=== PATIENT | female | born 1975 | race African-American/Black ===

== ENCOUNTER 2017-12-07 10:02 | Emergency (ER) | payer OTHER ==
[2017-12-07 10:10] VITALS: BP 159/73; BMI 25.1
--- NOTE | 2017-12-07 10:39 | DR.GENAD ---
HPI - PCP Primary Care Physician: NFThomas - HPI Comment HPI Comment: REDNESS,SWELLING NOTED. PAIN GOING INTO HAND ALSO. - Complaint/Symptoms Chief Complaint Doctors Comments: CUT BACK OF LT MIDDLE FINGER AT PIP JOINT SINCE 22:00 PM LAST NIGHT. Chief Complaint:: PT STATES SHE CUT FINGER LAST NIGHT ABOUT 10PM AT WORK, STATES FINGER IS SWELLING AND SHE NEEDS TO HAVE IT CHECKED OUT - Nurses notes reviewed Nurses Notes Review: Yes - Source History Provided: Patient - Mode of Arrival Mode of Arrival: Ambulatory - Timing Onset of Chief Complaint: 12/07/17 Came on: Suddenly - Duration Duration: Constant Duration: Days - Severity Severity: Moderate PMH - PMH Past Medical History: Yes Past Medical History: Arthritis, Diabetes Past Surgical History: Yes Surgical History: Hysterectomy - Family History History of Family Medical Conditions: Yes Family Medical History: Diabetes Mellitus, [place], Hypertension - Social History Does patient currently use any type of tobacco product: No Have you used tobacco products in the last 12 months: No Type of Tobacco Use: Cigarettes Alcohol Use: None Do you use any recreational Drugs:: No Lives With: Alone Lives Where: Home - infectious screening In the last 2 months have you had wt loss of >10#?: NO Have you had fever, night sweats or hemotysis?: No Have you traveled outside the country in the last 6 months?: No Isolation: Standard ROS - Review of Systems Constitutional: No Symptoms Reported Eyes: No Symptoms Reported ENTM: No Symptoms Reported Respiratoy: No Symptoms Reported Cardiovascular: No Symptoms Reported Gastrointestinal/Abdominal: No Symptoms Reported Genitourinary: No Symptoms Reported Neurological: No Symptoms Reported Musculoskeletal: No Symptoms Reported Integumentary: Change in Color, Other (1CM CUT LT PIP JOINT AREA. REDNESS AND SWELLING PRESENT.) Hematologic/Lymphatic: No Symptoms Reported Endocrine: No Symptoms Reported All Other Systems: Reviewed and Negative PE - Vital Signs Vitals: Temperature 98.7 F Pulse Rate 84 Respiratory Rate 20 Blood Pressure [Left Arm] 132/78 Blood Pressure 159/73 O2 Sat by Pulse Oximetry 100 - General Limitations: No Limitations General Appearance: Alert - Head Head Exam: Normal Inspection - Eyes Eye exam: Normal Appearance - ENT ENT Exam: Normal External Ear Exam External Ear Exam: Normal External Inspection TM/Canal Exam: Bilateral Normal Nose Exam: Normal Nose Exam Mouth Exam: Normal Inspection Throat Exam: Normal Inspection - Neck Neck Exam: Trachea Midline - Respiratory Respiratory Exam: Normal Lung Sounds Bilat Respiratory Exam: Bilateral Clear to Auscultation - Cardiovascular Cardiovascular Exam: Regular Rate, Normal Rhythm, Normal Heart Sounds - Abdominal Exam Abdominal Exam: Normal Inspection - Extremities Extremities Exam: Full ROM, Tenderness (PIP LT MIDDLE FINGER WITH 1CM CUT. SWELLING AND REDNESS PRESENR. ), Joint Swelling - Back Back Exam: Normal Inspection - Neurologic Neurological Exam: Alert, Oriented X3 - Psychiatric Psychiatric Exam: Normal Affect, Normal Mood - Skin Skin Exam: Erythema MDM - Differential Diagnosis Differential Diagnosis: LAC LT MIDDLE PIP JOINT. INFECTED FINGER. Course - Treatment Treatment: SEE ORDERS. - Education/Counseling Education/Counseling: Patient, Education Educated On: Diagnosis, Needs for Follow Up - Diagnosis Discharge Problem: Finger laceration, Infected finger - Discharge Plan Condition: Stable Prescriptions: Ibuprofen [MOTRIN TAB 600 MG *] 600 mg PO TID PRN #20 tab PRN Reason: Pain/Inflammation Sulfamethoxazole-Trimethoprim [BACTRIM DS TAB 800/160 MG *] 1 tab PO BID #14 tab - Follow ups/Referrals Follow ups/Referrals: NFD,None [Primary Care Provider] - 3 days - Instructions Instructions: Laceration Care, Adult, [id number] Additional Instructions: RETURN TO ED IF WORSE.
[2017-12-07] MEDS ORDERED: ADACEL TDaP IM ONE ×2 (10:44→11:00)
[2017-12-07] MEDS ORDERED: NEOSPORIN OINT ONE (10:49)
== END 2017-12-07 11:12 | disposition home or self-care (01) ==
LOC: ER 10:15
DX: S61.213A Laceration without foreign body of left middle finger without damage to nail, initial encounter (principal); L08.9 Local infection of the skin and subcutaneous tissue, unspecified; W45.8XXA Other foreign body or object entering through skin, initial encounter; Y92.9 Unspecified place or not applicable
CPT/HCPCS: 90471; 99282

== ENCOUNTER 2025-08-03 13:09 | Observation (INO) ==
[2025-08-03 15:03] LABS: MEAN PLATELET VOLUME 8.9 fL (7.4-11.0); RED CELL DISTRIBUTION WIDTH 13.9 % (11.6-16.5)
[2025-08-03 15:13] LABS: COR CA(FOR HYPOALB) 11.2 mg/dL (8.5-10.1); COR NA(FOR HYPERGLY) 142.0 mmol/L (136-145); CREATININE 1.4 mg/dL (0.55-1.02); eGFR NON BLACK RACES 42.0 (>60)
[2025-08-03] MEDS: NovoLIN R (or HumuLIN R) SUBCUT ONE (16:08)
--- NOTE | 2025-08-03 16:20 | DR.EXTPAIN ---
HPI Time seen Time Seen by Provider: 08/03/25 14:41 PCP Primary Care Physician: Merritt HPI Comment HPI Comment: According to pt she has not been feeling well for at least 4 days .Decreased appetite, not eating well. Has not checked her blood sugar for over 2 days . experiences malaise and feels nauseous has had drainage from right foot ulcer .Concerned she may be septic. Here to have her checked .Did have injury to right foot with fracture of right metatarsal shaft Complaint/Symptoms Chief Complaint Doctor Comments: not feeling well Chief Complaint:: Patient had a debridment with Dr. Ellsworth on 07/15/25 to diabetic ulcer to right planter. She followed up on 07/24 and instructed to continue wrapping toe with demetrius. Noted that no dressing was on foot on assesement. Patient complained of 4 digit toe swelling that she noticed yesteraday and fluid draining from top of toe on the way to hospital. Patient states it itches. white Discoloration noted to skin of fourth toe. COVID-19 Coronavirus risk:travel/contact w/high risk person: No Has patient experienced Coronavirus symptoms: No Source History Provided: Patient Mode of arrival Mode of Arrival: Wheelchair Timing Onset of Chief Complaint: 08/02/25 PMH PMH Past Medical History: Yes Past Medical History: Coronary Artery Disease, Diabetes and Hypertension Past Surgical History: Yes Surgical History: Hysterectomy Past Surgical History Comment: debridment to right planter Family History History of Family Medical Conditions: Yes Family Medical History: Diabetes Mellitus, Cancer, [place] and Hypertension Social History Does patient currently use any type of tobacco product: No Have you used tobacco products in the last 12 months: Yes Type of Tobacco Use: Cigarettes How many years tobacco product used: 10 Alcohol Use: None Do you use any recreational Drugs:: No Lives With: Alone Lives Where: Home Travel Risk Coronavirus risk:travel/contact w/high risk person: No Has patient experienced Coronavirus symptoms: No Infectious screening In the last 2 months have you had wt loss of >10#?: NO Have you had fever, night sweats or hemotysis?: No Have you traveled outside the country in the last 6 months?: No Isolation: Standard ROS Review of Systems Constitutional: Chills, Malaise and Fatigue Eyes: No Symptoms Reported ENTM: No Symptoms Reported Respiratoy: No Symptoms Reported Cardiovascular: No Symptoms Reported Gastrointestinal/Abdominal: Nausea Genitourinary: No Symptoms Reported Neurological: No Symptoms Reported Musculoskeletal: Other (right foot ulcer) Hematologic/Lymphatic: No Symptoms Reported PE Vital Signs Vitals: Vital Signs Temperature 98.2 F Pulse Rate 126 Pulse Rate 128 Pulse Rate 128 Pulse Rate 129 Pulse Rate 130 Pulse Rate 127 Pulse Rate 127 Pulse Rate 126 Respiratory Rate 25 Respiratory Rate 21 Respiratory Rate 16 Respiratory Rate 20 Respiratory Rate 23 Respiratory Rate 20 Respiratory Rate 15 Respiratory Rate 18 Respiratory Rate 20 Blood Pressure 138/81 Blood Pressure 185/98 Blood Pressure 185/98 Blood Pressure 185/98 Blood Pressure 207/115 Blood Pressure 134/84 O2 Sat by Pulse Oximetry 100 O2 Sat by Pulse Oximetry 100 O2 Sat by Pulse Oximetry 97 O2 Sat by Pulse Oximetry 99 O2 Sat by Pulse Oximetry 98 O2 Sat by Pulse Oximetry 98 O2 Sat by Pulse Oximetry 100 ROR Labs Reviewed Laboratory Results Reviewed?: Yes 08/03/25 14:55 08/03/25 14:55 Laboratory: WBC 20.0 X10^3/uL (3.6-10.0) H 08/03/25 14:55 RBC 3.57 X10^6/uL (3.5-5.4) 08/03/25 14:55 Hgb 10.8 g/dL (12.0-16.0) L 08/03/25 14:55 Hct 32.8 % (36.0-47.0) L 08/03/25 14:55 MCV 92.1 fL (80.0-100.0) 08/03/25 14:55 MCH 30.4 pg (27.0-34.0) 08/03/25 14:55 MCHC 33.0 g/dL (33.0-35.0) 08/03/25 14:55 RDW 13.9 % (11.6-16.5) 08/03/25 14:55 Plt Count 572 X10^3/uL (150.0-450.0) H 08/03/25 14:55 MPV 8.9 fL (7.4-11.0) 08/03/25 14:55 Neut % (Auto) 89.3 % (42.0-75.0) H 08/03/25 14:55 Lymph % (Auto) 6.8 % (21.0-51.0) L 08/03/25 14:55 [place] % (Auto) 3.5 % (0.0-13.0) 08/03/25 14:55 Eos % (Auto) 0.0 % (0.9-2.9) L 08/03/25 14:55 Baso % (Auto) 0.4 % (0.2-1.0) 08/03/25 14:55 Neut # (Auto) 17.9 x10^3/uL (2.2-4.8) H 08/03/25 14:55 Lymph # (Auto) 1.4 X10^3/uL (1.3-2.9) 08/03/25 14:55 [place] # (Auto) 0.7 x10^3/uL (0.3-0.8) 08/03/25 14:55 Eos # (Auto) 0.0 x10^3/uL (0.0-0.2) 08/03/25 14:55 Baso # (Auto) 0.1 X10^3/uL (0.0-0.1) 08/03/25 14:55 Absolute Nucleated RBC 0.0 /100WBC 08/03/25 14:55 PT 13.6 SECONDS (11.8-14.3) 08/03/25 14:55 INR Target Range - 08/03/25 14:55 INR 1.03 (0.8-1.3) 08/03/25 14:55 Sodium 136 mmol/L (136-145) 08/03/25 14:55 Corrected Sodium 142 mmol/L (136-145) 08/03/25 14:55 Potassium 3.5 mmol/L (3.5-5.1) 08/03/25 14:55 Chloride 92 mmol/L (98-107) L 08/03/25 14:55 Carbon Dioxide 32.6 mmol/L (21-32) H 08/03/25 14:55 BUN 33 mg/dL (7-18) H 08/03/25 14:55 Creatinine 1.40 mg/dL (0.55-1.02) H 08/03/25 14:55 Est GFR (MDRD) Af Amer 51 (>60) L 08/03/25 14:55 Est GFR (MDRD) Non-Af 42 (>60) L 08/03/25 14:55 Glucose 364 mg/dL (65-99) H 08/03/25 14:55 POC Glucose (mg/dL) 185 mg/dL (65-99) H 08/03/25 18:20 Hemoglobin A1c 10.7 % 08/03/25 14:55 Lactic Acid 1.0 mmol/L (0.4-2.0) 08/03/25 16:05 Calcium 10.2 mg/dL (8.5-10.1) H 08/03/25 14:55 Corrected Calcium 11.2 mg/dL (8.5-10.1) H 08/03/25 14:55 Total Bilirubin 0.60 mg/dL (0.2-1.0) 08/03/25 14:55 AST 15 Units/L (15-37) 08/03/25 14:55 ALT 13 Units/L (12-78) 08/03/25 14:55 Alkaline Phosphatase 206 Units/L (46-116) H 08/03/25 14:55 Creatine Kinase 90 Units/L (26-192) 08/03/25 14:55 Troponin I High Sens 7.2 ng/L (4.0-60.0) 08/03/25 14:55 Total Protein 9.7 g/dL (6.4-8.2) H 08/03/25 14:55 Albumin 2.8 g/dL (3.4-5.0) L 08/03/25 14:55 Globulin 6.9 g/dL (2.5-4.5) H 08/03/25 14:55 Albumin/Globulin Ratio 0.4 Ratio (1.1-2.1) L 08/03/25 14:55 Opioid Opioid Risk Tool Age (Michael box if 16-45): No History of Preadolescent Sexual Abuse: No Total: 0 Total Score Risk Category: Low Risk Copyright: Gian MARTÍNEZ predicting aberrant behaviors Discharge Plan Diagnosis Discharge Problem: Diabetic ulcer of right foot, Acute dehydration, Uncontrolled insulin-treated type 2 diabetes mellitus, HTN (hypertension), Tachycardia Discharge Plan Patient Disposition: 09 ADMITTED INPATIENT Condition: Stable Prescriptions: Continued oxycodone-acetaminophen 10-325 mg tablet 1 tab PO QID MDD 4 PRN (Reason: pain) 30 Days Qty: 120 0RF gabapentin 800 mg tablet 800 mg PO TID 30 Days Qty: 90 1RF clopidogrel 75 mg tablet 75 mg PO QDAY Qty: 90 0RF atorvastatin 80 mg tablet 80 mg PO QPM Qty: 90 0RF insulin glargine [Lantus Solostar U-100 Insulin] 100 unit/mL (3 mL) insulin pen 40 unit subcut QAM 90 Days Qty: 36 1RF Rx Instructions: take 40 units daily metoprolol succinate 50 mg Tablet Extended Release 24 Hr 50 mg PO DAILY 30 Days Qty: 30 0RF Discontinued montelukast 10 mg tablet 10 mg PO QDAY Qty: 30 0RF hydroxyzine HCl 25 mg tablet 25 mg PO BID PRN (Reason: anxiety) Qty: 60 1RF alprazolam 1 mg tablet 1 mg PO BID MDD 2 PRN (Reason: anxiety) 30 Days Qty: 60 0RF duloxetine 60 mg capsule,delayed release(DR/EC) 60 mg PO QPM Qty: 30 1RF fluconazole 150 mg tablet 150 mg PO Q3D Qty: 2 0RF insulin aspart U-100 100 unit/mL (3 mL) insulin pen 1 sliding scale dose subcut USEASDIRECTD 90 Days Qty: 15 2RF Rx Instructions: Max 30 units daily pantoprazole 40 mg tablet,delayed release (DR/EC) 40 mg PO QDAY 30 Days Qty: 30 1RF fluticasone propionate 50 mcg/actuation spray,suspension 1 spray intranasal BID Qty: 16 1RF No Action (DME) pen needle, diabetic [Marcela 2nd Gen Pen Needle] 32 gauge x 5/32" needle See Rx Instructions .Route Qty: 100 0RF Rx Instructions: As directed Health Concerns: Post Hospitalization: new medications and changes needed to prevent readmission or further decline. Pt educated and given instructions on all concerns. Plan of Treatment: Continue with present treatment and follow up plan. Pt is to keep follow up appointment as instructed and take medications as ordered. Orders to Discharge Patient Discharge Orders: Transfer (Routine); Ordered 08/03/25 Ordered By: Carrillo Moreau Follow ups/Referrals Follow ups/Referrals: Soumya Bang MD [Primary Care Provider, Unknown] - 3 days Instructions Stand Alone Forms: Find Help Web Site, Post Hospital Follow Up Care Print Language: NAMIBIAN Provider Note Additional Notes while in ER patients she complaint of chest pain and back pain .Her blood pressure on rechecking went up to 200 systolic .will give hydralazine cardiac workup including cxr and percocet 10 mg which patient takes daily .lactic acid normal but wbc over 20.Cardiac enzymes neg .Spoke with dr Bower agreed to have patient admitted and consult member services coordinator Dr. Amanda
[2025-08-03] MEDS: NS 1,000 ML IV 1,000 ML IV ONE (16:26)
[2025-08-03] MEDS: ROXICODONE TAB 5 MG PO ONE (16:26)
[2025-08-03] MEDS: ZOFRAN INJ 4 MG VIAL IVP ONE (16:28)
[2025-08-03] MEDS: APRESOLINE INJ 20 MG VIAL IVP ONE (16:46)
[2025-08-03] MEDS: PERCOCET TAB 5/325 MG PO ONE (16:47)
--- NOTE | 2025-08-03 17:33 | EKG ---
Test Reason : chest pain Blood Pressure : */* mmHG Vent. Rate : 127 BPM Atrial Rate : 127 BPM P-R Int : 116 ms QRS Dur : 74 ms QT Int : 322 ms P-R-T Axes : 76 1 77 degrees QTc Int : 467 ms Sinus tachycardia Possible Left atrial enlargement Nonspecific T wave abnormality Abnormal ECG When compared with ECG of 20-JUL-2025 14:53, Nonspecific T wave abnormality now evident in Inferior leads Nonspecific T wave abnormality now evident in Anterior leads Confirmed by Tyrell Huff MD ([id number]) on 08/04/2025 7:27:20 AM Referred By: Confirmed By: Tyrell Huff MD
[2025-08-03 17:57] LABS: INR 1.03 (0.8-1.3)
[2025-08-03] MEDS ORDERED: XYLOCAINE 2 % (PLAIN) ONE (18:39)
[2025-08-03] MEDS ORDERED: KETAMINE HCL ONE (18:39)
[2025-08-03] MEDS: NS 1,000 ML IV 1,000 ML IV SCH (18:53)
[2025-08-03] MEDS: VANCOMYCIN IV *PREMIX 1 G/200 ML BAG 1 G/200 ML PIGGYBACK IV SCH (18:53)
[2025-08-03] MEDS: ROXICODONE TAB 5 MG ONE (19:52)
[2025-08-03] MEDS: NS 1,000 ML IV 1,000 ML ONE (19:53)
[2025-08-03] MEDS: ZOFRAN INJ 4 MG VIAL ONE (19:53)
[2025-08-03] MEDS: LIPITOR TAB 80 MG PO SCH (20:16)
[2025-08-03] MEDS: PERCOCET TAB 5/325 MG PO PRN (20:17)
[2025-08-03] MEDS: ZOFRAN INJ 4 MG VIAL IVP PRN (20:17)
[2025-08-03] MEDS: LEVAQUIN TAB 750 MG PO SCH (20:17)
[2025-08-03] MEDS: SNACK - Diabetic Appropriate PO SCH (20:20)
--- NOTE | 2025-08-03 20:29 | RAD ---
EXAM: CHEST, 1 VIEW HISTORY: chest pain ; COMPARISON: July 21, 2025 FINDINGS: The lungs are clear. No pneumothorax or effusion. Heart size is normal. The bones are unremarkable. IMPRESSION: 1. No acute cardiopulmonary abnormality THIS IS AN ELECTRONICALLY VERIFIED FINAL REPORT 08/03/2025 8:25 PM - Electronically signed by Leslie Elizabeth MD
[2025-08-03] MEDS: NEURONTIN CAP 400 MG PO SCH (21:10)
--- NOTE | 2025-08-03 21:34 | RAD ---
EXAM: RIGHT FOOT X-RAY SERIES HISTORY: Foot pain. TECHNIQUE: 3 views COMPARISON: None available. FINDINGS: There is evidence for an old healed spiral fracture of the distal metaphyseal/diaphyseal junction of the fourth metatarsal bone. There is evidence for an old healed complex (Silverio) fracture through the proximal metaphysis/base of the fifth metatarsal bone. No acute fracture deformity is seen. A well-corticated accessory ossicle is seen at the lateral margin of the cuboid bone in keeping with an anatomical variant (os peroneum). There is diffuse osteopenia. There are approximately 7.3 mm and 6.6 mm nonexpansile subarticular cysts within the medial aspect of the head of the first metatarsal bone. There is no joint subluxation or dislocation seen. No evidence for inflammatory or degenerative arthritis is seen. No focal bone erosion or sclerosis is seen. Approximately 7.5 mm Achilles calcaneal bone spur, in keeping with chronic sequela of enthesopathy. There is peripheral atherosclerosis; nonspecific finding; rule out diabetic vasculopathy. No soft tissue emphysema, radiodense soft tissue mass or foreign body is seen. IMPRESSION: 1. No acute bony fracture, or joint subluxation or dislocation seen. 2. Diffuse osteopenia. 3. Evidence for an old healed spiral fracture of the distal metaphyseal/diaphyseal junction of the fourth metatarsal bone. 4. Evidence for an old healed complex (Silverio) fracture through the proximal metaphysis/base of the fifth metatarsal bone. 5. Approximately 7.3 mm and 6.6 mm nonexpansile subarticular cysts within the medial aspect of the head of the first metatarsal bone. 6. Peripheral atherosclerosis; nonspecific finding; rule out diabetic vasculopathy. 7. No soft tissue emphysema, radiodense soft tissue mass or foreign body seen. THIS IS AN ELECTRONICALLY VERIFIED FINAL REPORT 08/03/2025 9:31 PM - Electronically signed by Hollis Alvarado MD
[2025-08-04 06:28] LABS: MEAN PLATELET VOLUME 9.8 fL (7.4-11.0); RED CELL DISTRIBUTION WIDTH 13.9 % (11.6-16.5)
[2025-08-04 06:39] LABS: COR CA(FOR HYPOALB) 10.6 mg/dL (8.5-10.1); COR NA(FOR HYPERGLY) 140 mmol/L (136-145); CREATININE 1.16 mg/dL (0.55-1.02); eGFR NON BLACK RACES 52 (>60)
[2025-08-04] MEDS: CONSULT PHARMACY - POTASSIUM & MAGNESIUM XX SCH (07:28)
[2025-08-04] MEDS: NS 1,000 ML IV 1,000 ML IV SCH (07:28)
[2025-08-04] MEDS: PLAVIX PO SCH (08:59)
[2025-08-04] MEDS: MAG-OX TAB PO SCH (09:00)
[2025-08-04] MEDS ORDERED: PATIENT'S HOME MEDICATION (Insulin Glargine [Lantus Solostar U-100 Insulin] 100 unit/mL (3 subcut SCH (09:00)
[2025-08-04] MEDS: K-DUR TAB 20 MEQ PO SCH (09:00)
[2025-08-04] MEDS: LANTUS SC SCH (09:01)
[2025-08-04] MEDS: PHARMACY CONSULT XX SCH (09:12)
[2025-08-04] MEDS: LOVENOX INJ 40 MG SYR SC SCH (10:10)
--- NOTE | 2025-08-04 10:31 | DR.H&P ---
H&P History & Physical for Day of: H&P Date: 08/04/25 Chief Complaint Chief Complaint: fever, worsening right foot ulcer History of Present Illness History of Present Illness: Patient is a 50-year-old female with a past medical history of uncontrolled diabetes, CAD, hypertension, hyperlipidemia, chronic pain syndrome and peripheral vascular disease presented with weakness, fever and worsening right foot pain. She was recently admitted for right foot diabetic ulcer requiring I&D. She states she completed all the antibiotics and did follow-up with Dr. Mckoy outpatient. She states she noticed that her foot was more swollen and painful so she came to the ER. Workup included labs which showed elevated WBC 20. Right foot x-ray and chest x-ray were obtained. Patient was started on IV fluids, antibiotics. Podiatry was also consulted. No obvious drainage noted from the right foot. Labs/imaging reviewed: - WBC 18.7 hemoglobin 10.6 potassium 3.1 magnesium 1.7 creatinine 1.16 - Blood cultures pending - Foot x-ray reviewed Plan: Admit to [facility]. Continue hydration. Continue IV Levaquin and vancomycin. Follow pending cultures. Replace electrolytes as per protocol. Podiatry consult pending. Resume home medications. Continue insulin. Continue pain control. Add famotidine, carafate and magic mouthwash. Monitor a.m. labs and imaging. Time spent for clinical assessment, reviewing labs/imaging, physical exam, decision making and documentation greater than 45 mins. Past Medical History Past Medical History: Coronary Artery Disease, Diabetes and Hypertension Past Surgical History Surgical History: Hysterectomy Family History Family Medical History: Diabetes Mellitus, Cancer, [place] and Hypertension Social History Does patient currently use any type of tobacco product: No Have you used tobacco products in the last 12 months: Yes Type of Tobacco Use: Cigarettes How many years tobacco product used: 6 Does any household member use tobacco: No Alcohol Use: None Drug Use: Marijuana Allergies Allergies Allergy/AdvReac Type Severity Reaction Status Date / Time clindamycin Allergy Severe ANAPHALEXIS Verified 07/24/25 15:56 REACTION Penicillins Allergy Unknown Verified 07/24/25 15:56 Labs 08/04/25 05:52 08/04/25 05:52 Labs: Laboratory WBC 18.7 X10^3/uL (3.6-10.0) H 08/04/25 05:52 RBC 3.48 X10^6/uL (3.5-5.4) L 08/04/25 05:52 Hgb 10.6 g/dL (12.0-16.0) L 08/04/25 05:52 Hct 32.1 % (36.0-47.0) L 08/04/25 05:52 MCV 92.1 fL (80.0-100.0) 08/04/25 05:52 MCH 30.3 pg (27.0-34.0) 08/04/25 05:52 MCHC 32.9 g/dL (33.0-35.0) L 08/04/25 05:52 RDW 13.9 % (11.6-16.5) 08/04/25 05:52 Plt Count 521 X10^3/uL (150.0-450.0) H 08/04/25 05:52 MPV 9.8 fL (7.4-11.0) 08/04/25 05:52 Neut % (Auto) 85.6 % (42.0-75.0) H 08/04/25 05:52 Lymph % (Auto) 8.4 % (21.0-51.0) L 08/04/25 05:52 [place] % (Auto) 4.6 % (0.0-13.0) 08/04/25 05:52 Eos % (Auto) 0.2 % (0.9-2.9) L 08/04/25 05:52 Baso % (Auto) 1.2 % (0.2-1.0) H 08/04/25 05:52 Neut # (Auto) 16.0 x10^3/uL (2.2-4.8) H 08/04/25 05:52 Lymph # (Auto) 1.6 X10^3/uL (1.3-2.9) 08/04/25 05:52 [place] # (Auto) 0.9 x10^3/uL (0.3-0.8) H 08/04/25 05:52 Eos # (Auto) 0.0 x10^3/uL (0.0-0.2) 08/04/25 05:52 Baso # (Auto) 0.2 X10^3/uL (0.0-0.1) H 08/04/25 05:52 Absolute Nucleated RBC 0.0 /100WBC 08/04/25 05:52 PT 13.6 SECONDS (11.8-14.3) 08/03/25 14:55 INR Target Range - 08/03/25 14:55 INR 1.03 (0.8-1.3) 08/03/25 14:55 Sodium 139 mmol/L (136-145) 08/04/25 05:52 Corrected Sodium 140 mmol/L (136-145) 08/04/25 05:52 Potassium 3.1 mmol/L (3.5-5.1) L 08/04/25 05:52 Chloride 98 mmol/L (98-107) 08/04/25 05:52 Carbon Dioxide 32.1 mmol/L (21-32) H 08/04/25 05:52 BUN 27 mg/dL (7-18) H 08/04/25 05:52 Creatinine 1.16 mg/dL (0.55-1.02) H 08/04/25 05:52 Est GFR (MDRD) Af Amer > 60 (>60) 08/04/25 05:52 Est GFR (MDRD) Non-Af 52 (>60) L 08/04/25 05:52 Glucose 129 mg/dL (65-99) H 08/04/25 05:52 POC Glucose (mg/dL) 131 mg/dL (65-99) H 08/04/25 05:36 Hemoglobin A1c 10.7 % 08/03/25 14:55 Lactic Acid 1.0 mmol/L (0.4-2.0) 08/03/25 16:05 Calcium 9.5 mg/dL (8.5-10.1) 08/04/25 05:52 Corrected Calcium 10.6 mg/dL (8.5-10.1) H 08/04/25 05:52 Magnesium 1.7 mg/dL (2.0-2.9) L 08/04/25 05:52 Total Bilirubin 0.60 mg/dL (0.2-1.0) 08/04/25 05:52 AST 17 Units/L (15-37) 08/04/25 05:52 ALT 12 Units/L (12-78) 08/04/25 05:52 Alkaline Phosphatase 179 Units/L (46-116) H 08/04/25 05:52 Creatine Kinase 90 Units/L (26-192) 08/03/25 14:55 Troponin I High Sens 7.2 ng/L (4.0-60.0) 08/03/25 14:55 Total Protein 9.0 g/dL (6.4-8.2) H 08/04/25 05:52 Albumin 2.6 g/dL (3.4-5.0) L 08/04/25 05:52 Globulin 6.4 g/dL (2.5-4.5) H 08/04/25 05:52 Albumin/Globulin Ratio 0.4 Ratio (1.1-2.1) L 08/04/25 05:52 Review of Systems Constitutional: Fever and Weakness Eyes: No Symptoms Reported ENT: No Symptoms Reported Respiratory: No Symptoms Reported Cardiovascular: No Symptoms Reported Gastrointestinal: No Symptoms Reported Genitourinary: No Symptoms Reported Musculoskeletal: Foot Pain Skin: Lesions and Wound Neurological: No Symptoms Reported Physical Exam Vital Signs: Vital Signs Temperature 97.7 F Temperature 98.4 F Pulse Rate [Right Radial] 106 Pulse Rate [Right Radial] 116 Respiratory Rate 20 Respiratory Rate 16 Respiratory Rate 20 Respiratory Rate 16 Blood Pressure [Right Arm] 133/69 Blood Pressure [Right Arm] 142/98 O2 Sat by Pulse Oximetry 97 O2 Sat by Pulse Oximetry 99 Oriented: Normal Respiratory: Clear Throughout Cardiovascular: Normal Auscultation: Bowel Sounds: Normal Palpation: Normal Tenderness: Normal Skin: Tender, Wound and Other (right foot swelling noted, ulcer noted on plantar surface, no drainage. Erythema noted ) Musculoskeletal: Right, Foot, Back:Lumbar and Back:Paraspinous Psychiatric: Normal Mood Description: Calm Affect: Normal Speech Pattern: Clear and Appropriate Assessment/Plan (1) Diabetic ulcer of right foot: Qualifiers: Diabetes mellitus type: type 2 Diabetic foot ulcer location: u nspecified part of foot Non-pressure ulcer stage: unspecified non-pressure ulcer stage Qualified Code(s): E11.621 - Type 2 diabetes mellitus with foot ulcer; L97.519 - Non-pressure chronic ulcer of other part of right foot with unspecified severity Status: Chronic (2) Hypokalemia: Status: Acute (3) Acute dehydration: Status: Acute (4) Uncontrolled insulin-treated type 2 diabetes mellitus: Status: Chronic (5) Coronary artery disease: Qualifiers: Associated angina: without angina Coronary Disease-Associated Artery/Lesion type: unspecified vessel or lesion type [place] vs. transplanted heart: [place] heart Qualified Code(s): I25.10 - Atherosclerotic heart disease of [place] coronary artery without angina pectoris Status: Chronic (6) Peripheral vascular disease: Status: Chronic (7) HTN (hypertension): Qualifiers: Hypertension type: primary hypertension Qualified Code(s): I10 - Essential (primary) hypertension Status: Chronic (8) Hypomagnesemia: Status: Acute Review H&P Reviewed: Yes Patient was examined?: Yes
[2025-08-04] MEDS: PEPCID 20 MG VIAL 20 MG in NS 50 ML IV 50 ML IV SCH (10:39)
[2025-08-04] MEDS: CARAFATE PO SCH (10:39)
[2025-08-04] MEDS: OMNIPAQUE 350 mg/mL 100 mL BTL 100 ML ONE (14:11)
[2025-08-04] MEDS: OMNIPAQUE 350 mg/mL 50 mL BTL 50 ML ONE (14:12)
[2025-08-04] MEDS: OMNIPAQUE 350 mg/mL 100 mL BTL IVP ONE ×3 (14:35→15:27)
[2025-08-04] MEDS: OMNIPAQUE 350 mg/mL 50 mL BTL IVP ONE ×3 (14:35→15:28)
[2025-08-04] MEDS: NICOTINE PATCH TD SCH (15:38)
--- NOTE | 2025-08-04 16:24 | CT ---
EXAM: CTA AORTA WITH RUNOFF HISTORY: non healing right foot wound; COMPARISON: October 13, 2023 ultrasound TECHNIQUE: CTA AORTA WITH RUNOFF 3D reconstuction angiographic technique for further evaluation. FINDINGS: Aorta: Atherosclerotic changes with no aneurysm. No clinically significant stenosis or occlusion. Mesenteric arteries/Celiac trunk: No clinically significant stenosis, occlusion or aneurysm. Renal arteries: No clinically significant stenosis, occlusion or aneurysm. Right iliac arteries: No clinically significant stenosis, occlusion or aneurysm. Left iliac arteries: No clinically significant stenosis, occlusion or aneurysm. Right femoral arteries/popliteal artery: No clinically significant stenosis, occlusion or aneurysm. Left femoral arteries/popliteal artery: No clinically significant stenosis, occlusion or aneurysm. Right infrapopliteal arteries: No occlusion or aneurysm. 3 vessel runoff. Left infrapopliteal arteries: No occlusion or aneurysm. 3 vessel runoff. Lung bases are clear. No acute osseous abnormality. Stomach and proximal small bowel appear normal. Solid visceral organs of the upper abdomen are unremarkable. Gallbladder appears normal. No biliary dilatation. Homogeneous enhancement of the kidneys without hydronephrosis or hydroureter. No urinary calculus identified. Urinary bladder is unremarkable. Unremarkable appearance of the small and large bowel. No evidence of acute appendicitis. Reproductive structures are unremarkable. No pneumoperitoneum. No free intra-abdominal fluid. No adenopathy. Left and right anterior and posterior tibial arteries multifocal subtotal stenosis findings are seen with contrast extending to the bilateral ankles. Moderate to severe diffuse intermittent plaque bilateral [id number] vascular findings involving the bilateral anterior tibial artery, bilateral posterior tibial artery and bilateral peroneal arteries with no vascular occlusion IMPRESSION: No acute intra-abdominal abnormality identified. Bilateral [id number] anterior tibial and posterior tibial artery multifocal disease-moderate to severe diffuse peripheral arterial disease distal changes [id number] with no vascular occlusion. These findings could suggest etiology for claudication THIS IS AN ELECTRONICALLY VERIFIED FINAL REPORT 08/04/2025 4:19 PM - Electronically signed by Leslie Elizabeth MD
[2025-08-04] MEDS ORDERED: CATAPRES TAB 0.1 MG ONE (17:16)
[2025-08-04] MEDS: CATAPRES TAB 0.1 MG PO ONE (17:17)
[2025-08-04] MEDS: MAGIC MOUTHWASH (Orig. Formula) MT PRN (20:49)
[2025-08-04] MEDS: PHENERGAN INJ 25 MG IM PRN (21:13)
[2025-08-04] MEDS: ALPRAZOLAM ODT PO PRN (21:29)
--- NOTE | 2025-08-04 23:23 | DR.CONSULT ---
CONSULT Consultation for Day of: Date: 08/04/25 Chief Complaint Chief Complaint: right foot pain and non-healing right foot plantar ulcer ( probably diabetic vs vascular) Allergies Allergies Allergy/AdvReac Type Severity Reaction Status Date / Time clindamycin Allergy Severe ANAPHALEXIS Verified 07/24/25 15:56 REACTION Penicillins Allergy Unknown Verified 07/24/25 15:56 History of Present Illness History of Present Illness: 50-year-old female with poorly controlled diabetes, coronary disease status post stent x 1 after myocardial infarction 2 years ago, hypertension, hyperlipidemia who presented with worsening right foot pain. Noted to have a diabetic ulcer to the plantar aspect of the right foot which required incision and drainage in the past. She notes her foot is more painful and swollen. She has a history of having had arteriograms in the past showing severe disease below the knees bilaterally but has never had intervention primarily because she did not have insurance at the time. Patient with significant tobacco abuse history who stopped smoking 2 weeks ago. Past Medical History Past Medical History: Coronary Artery Disease, Diabetes, Dyslipidemia and Hypertension Past Surgical History Surgical History: Hysterectomy Family History Family Medical History: Diabetes Mellitus, Cancer, [place] and Hypertension Social History Does patient currently use any type of tobacco product: No Have you used tobacco products in the last 12 months: Yes Type of Tobacco Use: Cigarettes How many years tobacco product used: 37 Does any household member use tobacco: No Alcohol Use: None Drug Use: Marijuana Medications Home Medications: clindamycin Allergy (Severe, Verified 07/24/25 15:56) ANAPHALEXIS REACTION Penicillins Allergy (Unknown, Verified 07/24/25 15:56) CONTINUE taking the following medications alprazolam 1 mg tablet 1 mg PO BID 08/04/25 [History] Review of Systems Constitutional: See HPI Eyes: No Symptoms Reported ENT: No Symptoms Reported Respiratory: No Symptoms Reported Cardiovascular: No Symptoms Reported Gastrointestinal: No Symptoms Reported Genitourinary: No Symptoms Reported Musculoskeletal: See HPI Skin: See HPI Neurological: No Symptoms Reported Physical Exam Vital Signs: Vital Signs Temperature 98.7 F Temperature 98.2 F Pulse Rate [Right Radial] 104 Pulse Rate [Right Radial] 106 Respiratory Rate 17 Respiratory Rate 24 Respiratory Rate 12 Respiratory Rate 16 Blood Pressure [Right Arm] 143/81 Blood Pressure [Right Arm] 154/78 Blood Pressure [Right Arm] 178/103 Blood Pressure [Right Arm] 182/98 O2 Sat by Pulse Oximetry 100 O2 Sat by Pulse Oximetry 99 CT angiogram shows multiple areas of subtotal stenosis of all trifurcation vessels below the knee bilaterally Hemoglobin equals 10.6 g, creatinine equals 1.16,White blood cell count 18,007 Oriented: Normal, Time, Person and Place Eyes: Normal Ear: Normal Nose: Normal Throat: Normal Respiratory: Clear Throughout Cardiovascular: Normal and Other (Palpable femoral pulses bilaterally. Absent dorsalis pedis and posterior tibial arteries bilaterally) : Normal Auscultation: Bowel Sounds: Normal Palpation: Normal Tenderness: Normal Skin: Wound (4 x 3 x 0.5 cm crusting ulcer to the plantar aspect of the right foot over the metatarsal heads there is some fullness in the arch where her old wound has been. This may represent undrained pus patient with skin break over the dorsal aspect of the right fourth toe) Musculoskeletal: Normal Psychiatric: Normal Mood Description: Calm Affect: Normal Speech Pattern: Clear Plan (1) Diabetic ulcer of right foot: Status: Chronic Qualifiers: Diabetes mellitus type: type 2 Diabetic foot ulcer location: unspecified part of foot Non-pressure ulcer stage: unspecified non-pressure ulcer stage Qualified Code(s): E11.621 - Type 2 diabetes mellitus with foot ulcer; L97.519 - Non-pressure chronic ulcer of other part of right foot with unspecified severity Plan: Will plan for arterial intervention of the trifurcation vessels of the right leg. Patient required debridement of the ulcer of the right plantar foot in the future as well (2) Hypokalemia: Status: Acute Plan: Replace potassium (3) Acute dehydration: Status: Acute Plan: Hydrate (4) Uncontrolled insulin-treated type 2 diabetes mellitus: Status: Chronic Plan: Control blood sugar (5) Coronary artery disease: Status: Chronic Qualifiers: Associated angina: without angina Coronary Disease-Associated Artery/Lesion type: unspecified vessel or lesion type [place] vs. transplanted heart: [place] heart Qualified Code(s): I25.10 - Atherosclerotic heart disease of [place] coronary artery without angina pectoris Plan: Stable (6) Peripheral vascular disease: Status: Chronic Plan: As above (7) HTN (hypertension): Status: Chronic Qualifiers: Hypertension type: primary hypertension Qualified Code(s): I10 - Essential (primary) hypertension Plan: Home medications (8) Hypomagnesemia: Status: Acute Plan: replace (9) Atherosclerosis of [place] arteries of extremities with rest pain, right leg: Status: Acute Plan: Plan arterial venting of the right leg in the AM (10) Atherosclerosis of [place] arteries of extremities with rest pain, left leg: Status: Acute Plan: Patient will require arterial mention of left leg in the future as well.
[2025-08-05] MEDS: TYLENOL 325 MG TAB PO PRN (04:13)
[2025-08-05 05:59] LABS: MEAN PLATELET VOLUME 9.6 fL (7.4-11.0); RED CELL DISTRIBUTION WIDTH 14.3 % (11.6-16.5)
[2025-08-05 06:06] LABS: COR CA(FOR HYPOALB) 9.9 mg/dL (8.5-10.1); COR NA(FOR HYPERGLY) 139 mmol/L (136-145); CREATININE 0.79 mg/dL (0.55-1.02); eGFR NON BLACK RACES > 60 (>60)
[2025-08-05] MEDS: HIBICLENS WASH EXT ONE (06:20)
[2025-08-05] MEDS ORDERED: CONSULT PHARMACY - POTASSIUM & MAGNESIUM XX SCH (07:00)
[2025-08-05] MEDS ORDERED: K-DUR TAB 20 MEQ PO SCH (09:00)
[2025-08-05] MEDS ORDERED: MAG-OX TAB PO SCH (09:00)
[2025-08-05 09:01] LABS: CREATININE 0.66 mg/dL (0.55-1.02)
[2025-08-05 09:17] VITALS: BMI 21.6
--- NOTE | 2025-08-05 09:47 | PCM.PROG ---
Progress Note Progress Note for Day of Date of Exam: 08/05/25 Subjective Subjective: Patient seen at bedside, no acute events overnight. She still reports having some heartburn and burning. She was seen by Dr Fairbanks yesterday, CTA run off showed b/l PAD, no significant occlusion. Patient is scheduled for right leg intervention today. She remains on IV antibiotics. Blood Cx remain negative. Labs/imaging reviewed: -WBC 8.1 Hgb 8.5 K 3.1 Mag 1.6 Cr 0.79 -CTA reviewed -Blood Cx neg Plan: Continue current treatment, follow surgery and vascular recommendations. Plan for RLE intervention today. NPO status. Continue IV fluids, replace K and Mag. Continue IV antibiotics, follow final cultures. Add protonix. Continue famotidine. Continue home meds as appropriate. Monitor AM labs/imaging. Time spent for clinical assessment, reviewing labs/imaging, physical exam, decision making and documentation greater than 45 mins. Past Medical Family Social History Allergies: Allergies clindamycin Allergy (Severe, Verified 07/24/25 15:56) ANAPHALEXIS REACTION Hives Penicillins Allergy (Unknown, Verified 07/24/25 15:56) Reason: Drug allergy Vital Signs and I&O's Vital Signs: Vital Signs Temperature 97.8 F Pulse Rate [Right Radial] 100 Respiratory Rate 16 Respiratory Rate 16 Respiratory Rate 20 Blood Pressure [Right Arm] 131/75 O2 Sat by Pulse Oximetry 98 Intake and Output: Intake & Output 08/02/25 08/03/25 08/04/25 08/05/25 23:59 23:59 23:59 23:59 Intake Total 167 / 167 3341 / 3341 796 / 796 Balance 167 / 167 3341 / 3341 796 / 796 Physical Exam Oriented: Normal, Time, Person and Place Eyes: Normal Ear: Normal Nose: Normal Throat: Normal Cardiovascular: Normal and Other (Palpable femoral pulses bilaterally. Absent dorsalis pedis and posterior tibial arteries bilaterally) Auscultation: Bowel Sounds: Normal Palpation: Normal Tenderness: Normal Skin: Wound (4 x 3 x 0.5 cm crusting ulcer to the plantar aspect of the right foot over the metatarsal heads there is some fullness in the arch where her old wound has been. This may represent undrained pus patient with skin break over the dorsal aspect of the right fourth toe) Musculoskeletal: Normal Psychiatric: Normal Mood Description: Calm Affect: Normal Speech Pattern: Clear Laboratory and Diagnostics 08/05/25 05:13 08/05/25 08:29 Labs: 08/03/25 17:40 Blood Blood Culture - Preliminary 08/03/25 17:31 Blood Blood Culture - Preliminary Laboratory WBC 8.1 X10^3/uL (3.6-10.0) D 08/05/25 05:13 RBC 2.77 X10^6/uL (3.5-5.4) L 08/05/25 05:13 Hgb 8.5 g/dL (12.0-16.0) L D 08/05/25 05:13 Hct 25.5 % (36.0-47.0) L 08/05/25 05:13 MCV 92.0 fL (80.0-100.0) 08/05/25 05:13 MCH 30.6 pg (27.0-34.0) 08/05/25 05:13 MCHC 33.3 g/dL (33.0-35.0) 08/05/25 05:13 RDW 14.3 % (11.6-16.5) 08/05/25 05:13 Plt Count 429 X10^3/uL (150.0-450.0) 08/05/25 05:13 MPV 9.6 fL (7.4-11.0) 08/05/25 05:13 Neut % (Auto) 65.6 % (42.0-75.0) 08/05/25 05:13 Lymph % (Auto) 25.3 % (21.0-51.0) 08/05/25 05:13 Amelia % (Auto) 7.6 % (0.0-13.0) 08/05/25 05:13 Eos % (Auto) 1.2 % (0.9-2.9) 08/05/25 05:13 Baso % (Auto) 0.3 % (0.2-1.0) 08/05/25 05:13 Neut # (Auto) 5.3 x10^3/uL (2.2-4.8) H 08/05/25 05:13 Lymph # (Auto) 2.0 X10^3/uL (1.3-2.9) 08/05/25 05:13 Amelia # (Auto) 0.6 x10^3/uL (0.3-0.8) 08/05/25 05:13 Eos # (Auto) 0.1 x10^3/uL (0.0-0.2) 08/05/25 05:13 Baso # (Auto) 0.0 X10^3/uL (0.0-0.1) 08/05/25 05:13 Absolute Nucleated RBC 0.1 /100WBC 08/05/25 05:13 PT 13.6 SECONDS (11.8-14.3) 08/03/25 14:55 INR Target Range - 08/03/25 14:55 INR 1.03 (0.8-1.3) 08/03/25 14:55 Sodium 137 mmol/L (136-145) 08/05/25 05:13 Corrected Sodium 139 mmol/L (136-145) 08/05/25 05:13 Potassium 3.1 mmol/L (3.5-5.1) L 08/05/25 05:13 Chloride 102 mmol/L (98-107) 08/05/25 05:13 Carbon Dioxide 26.0 mmol/L (21-32) 08/05/25 05:13 BUN 14 mg/dL (7-18) 08/05/25 05:13 Creatinine 0.66 mg/dL (0.55-1.02) 08/05/25 08:29 Est GFR (MDRD) Af Amer > 60 (>60) 08/05/25 05:13 Est GFR (MDRD) Non-Af > 60 (>60) 08/05/25 05:13 Glucose 188 mg/dL (65-99) H 08/05/25 05:13 POC Glucose (mg/dL) 201 mg/dL (65-99) H 08/05/25 05:50 Hemoglobin A1c 10.7 % 08/03/25 14:55 Lactic Acid 1.0 mmol/L (0.4-2.0) 08/03/25 16:05 Calcium 8.4 mg/dL (8.5-10.1) L 08/05/25 05:13 Corrected Calcium 9.9 mg/dL (8.5-10.1) 08/05/25 05:13 Magnesium 1.6 mg/dL (2.0-2.9) L 08/05/25 05:13 Total Bilirubin 0.60 mg/dL (0.2-1.0) 08/05/25 05:13 AST 14 Units/L (15-37) L 08/05/25 05:13 ALT 8 Units/L (12-78) L 08/05/25 05:13 Alkaline Phosphatase 131 Units/L (46-116) H 08/05/25 05:13 Creatine Kinase 90 Units/L (26-192) 08/03/25 14:55 Troponin I High Sens 7.2 ng/L (4.0-60.0) 08/03/25 14:55 Total Protein 6.9 g/dL (6.4-8.2) 08/05/25 05:13 Albumin 2.1 g/dL (3.4-5.0) L 08/05/25 05:13 Globulin 4.8 g/dL (2.5-4.5) H 08/05/25 05:13 Albumin/Globulin Ratio 0.4 Ratio (1.1-2.1) L 08/05/25 05:13 Vancomycin Trough 10.0 ug/mL (15-20) L 08/05/25 08:29 Plan (1) Diabetic ulcer of right foot: Status: Chronic Qualifiers: Diabetes mellitus type: type 2 Diabetic foot ulcer location: u nspecified part of foot Non-pressure ulcer stage: unspecified non-pressure ulcer stage Qualified Code(s): E11.621 - Type 2 diabetes mellitus with foot ulcer; L97.519 - Non-pressure chronic ulcer of other part of right foot with unspecified severity (2) Hypokalemia: Status: Acute (3) Acute dehydration: Status: Acute (4) Uncontrolled insulin-treated type 2 diabetes mellitus: Status: Chronic (5) Coronary artery disease: Status: Chronic Qualifiers: Associated angina: without angina Coronary Disease-Associated Artery/Lesion type: unspecified vessel or lesion type [place] vs. transplanted heart: [place] heart Qualified Code(s): I25.10 - Atherosclerotic heart disease of [place] coronary artery without angina pectoris (6) Peripheral vascular disease: Status: Chronic (7) HTN (hypertension): Status: Chronic Qualifiers: Hypertension type: primary hypertension Qualified Code(s): I10 - Essential (primary) hypertension (8) Hypomagnesemia: Status: Acute (9) Atherosclerosis of [place] arteries of extremities with rest pain, right leg: Status: Acute (10) Atherosclerosis of [place] arteries of extremities with rest pain, left leg: Status: Acute
[2025-08-05] MEDS: PHARMACY COMMENT IV NR (09:59)
[2025-08-05] MEDS: TOPROL XL PO SCH (10:20)
[2025-08-05] MEDS: NS + KCL 20 MEQ/L 1,000 ML with MAGNESIUM SULFATE 50% INJ VIAL 2 G IV SCH (10:25)
[2025-08-05] MEDS: PROTONIX INJ 40 MG VIAL IVP SCH (10:26)
[2025-08-05] MEDS: ZOFRAN INJ 4 MG VIAL ONE (14:49)
[2025-08-05] MEDS: HEPARIN SODIUM INJ 5000 UNITS ONE (14:49)
[2025-08-05] MEDS: OFIRMEV IV 1000 MG VIAL 1,000 MG/100 ML VIAL IV ONE (14:49)
[2025-08-05] MEDS: DIPRIVAN VIAL 20 ML ONE (14:49)
[2025-08-05] MEDS: PRECEDEX INJ VIAL ONE (14:49)
[2025-08-05] MEDS: VERSED ONE (14:50)
[2025-08-05] MEDS: FENTANYL VIAL INJ 100 mcg ONE (14:50)
[2025-08-05] MEDS: NEO-SYNEPHRINE INJ ONE (14:55)
[2025-08-05] MEDS: NS 1,000 ML IV 1,000 ML ONE (15:21)
[2025-08-05] MEDS: ANCEF VIAL 1 GRAM ONE (15:58)
[2025-08-05] MEDS: NS 100 ML IV 100 ML ONE (15:58)
[2025-08-05] MEDS: ZOFRAN INJ 4 MG VIAL IVP PRN (16:00)
[2025-08-05] MEDS: VERSED IVP PRN (16:00)
[2025-08-05] MEDS: NS 1,000 ML IV 600 ML IV PRN (16:00)
[2025-08-05] MEDS: ANCEF VIAL 1 GRAM IV PRN (16:05)
[2025-08-05] MEDS: FENTANYL VIAL INJ 100 mcg IVP PRN (16:10)
[2025-08-05] MEDS: PRECEDEX INJ VIAL IVP PRN (16:10)
[2025-08-05] MEDS: XYLOCAINE 2 % (PLAIN) INJ PRN (16:10)
[2025-08-05] MEDS: KETAMINE HCL IVP PRN (16:10)
[2025-08-05] MEDS: DIPRIVAN VIAL 240 ML IVP PRN (16:10)
[2025-08-05] MEDS: OFIRMEV IV 1000 MG VIAL 1,000 MG/100 ML VIAL IV PRN (16:25)
[2025-08-05] MEDS: HEPARIN 1,000 UNIT/500 ML-NS 3,000 UNIT/1,500 ML IV.SOLN ONE (16:28)
[2025-08-05] MEDS: VISIPAQUE 100 ML ONE (16:28)
[2025-08-05] MEDS: MARCAINE 0.5% ONE (16:28)
[2025-08-05] MEDS: VISIPAQUE 50 ML ONE (16:28)
[2025-08-05] MEDS: HEPARIN SODIUM INJ 5000 UNITS IVP PRN (16:30)
[2025-08-05] MEDS: NEO-SYNEPHRINE INJ IVP PRN (16:35)
[2025-08-05] MEDS: NS 500 ML IV 500 ML IV ONE (16:47)
[2025-08-05] MEDS: NITROGLYCERIN IV PREMIX 50 MG 50 MG/250 ML BAG ONE (16:59)
--- NOTE | 2025-08-05 17:18 | OR.IMMED ---
IMMEDIATE POST-OP NOTE Immediate Post-Op Note Date of surgery/procedure: 08/05/25 Pre-Op Diagnosis: critical ischemia right leg with nonhealing diabetic ulcer to the right plantar foot Post-Op Diagnosis: same , see findings below Procedure: Aortogram, arteriogram of right [place] extremity, angioplasty of right peroneal artery Description of Procedure: dictated Surgeon/Production Tool Engineer: Tiki Findings: Normal common femoral superficial and popliteal arteries, completely occluded right anterior tibial artery with no reconstitution at the ankle complete occlusion of the right posterior tibial artery with some reconstitution of the ankle probably around the arch of the foot, peroneal artery with significant disease proximally with refilling of the anterior tibial artery at the ankle. Estimated Blood Loss: 100cc Complications: none Progress Notes: Patient returned to the floor. Continue aspirin and anticoagulation, continue wound care of the ulcer to the plantar right
[2025-08-05] MEDS: XARELTO PO SCH (21:25)
[2025-08-05] MEDS: NovoLIN R (or HumuLIN R) SUBCUT PRN (22:20)
[2025-08-06] MEDS: DIPRIVAN VIAL 20 ML ONE (05:31)
[2025-08-06 06:39] LABS: MEAN PLATELET VOLUME 9.6 fL (7.4-11.0); RED CELL DISTRIBUTION WIDTH 14.1 % (11.6-16.5)
[2025-08-06 06:57] LABS: COR CA(FOR HYPOALB) 10.2 mg/dL (8.5-10.1); COR NA(FOR HYPERGLY) 141 mmol/L (136-145); CREATININE 0.68 mg/dL (0.55-1.02); eGFR NON BLACK RACES > 60 (>60)
[2025-08-06 09:25] VITALS: O2SAT 100
[2025-08-06 11:52] VITALS: BP 134/69; PULSE 88; RESP 18; TEMP 99
--- NOTE | 2025-08-07 15:15 | DR.OPNOTE ---
OP NOTE Pre-Op Diagnosis: Occluded trifurcation vessels right leg with nonhealing diabetic foot ulcer Post-Op Diagnosis: Same, see findings Procedure Date Date Of Procedure: 08/05/25 Procedure: PROCEDURE: Diagnostic aortogram, diagnostic arteriogram right leg, atherectomy and balloon angioplasty of the right peroneal artery NARRATIVE: The patient was taken to the operative suite and placed in the supine position. The left groin and entire right leg were prepped and draped in sterile fashion. Patient was given intravenous sedation supervised by myself. Timeout for the procedure obtained. Ultrasound used to identify the femoral artery in the left groin and the skin overlying it infiltrated with 0.5% Marcaine. Ultrasound used to guide puncture of the left femoral artery and a 0.012 inch guidewire placed. Incision made over the guidewire at the skin edge with a #11 knife blade and the micro sheath placed over the guidewire into the femoral artery. Small wire exchanged for a 0.035 inch Advantage Glidewire and the micro sheath exchanged for a 5 [place] vascular sheath. Patient given 5000 units of intravenous heparin. Omni catheter placed over the guidewire into the aorta and power injector used to perform aortogram showing normal aorta and iliac artery. The Omni catheter was then used to direct the guidewire down the right common iliac artery to the distal right external iliac artery. The Omni catheter exchanged for a Grant catheter and sequential arteriograms performed of the right leg showing normal proximal vessels i.e. superficial femoral and popliteal artery with occlusion of the proximal and mid anterior tibial artery, occlusion of the proximal and mid posterior tibial artery and both reconstituted at the ankle. Severely diseased peroneal artery which is only artery going to the ankle. The Grant catheter removed and over the guidewire the 5 [place] sheath was exchanged for a 7 [place] Cat[place] Sheath which was parked distal right superficial femoral artery. Grant catheter and the 0.035 guidewire used to traverse the arteries of the right leg ultimately ending in the peroneal artery all the way to the ankle. This was selective catheterization. Grant catheter used to exchange 0.035 inch wire for a 0.014 inch Thruway wire. Over the Thru-way wire we placed the 1.6 mm Jetstream atherectomy device and formed atherectomy of the proximal peroneal artery as far as we could go. This rem jaxon then we balloon dilated the peroneal artery with a 2.0 mm x 220 mm [place] balloon inflating it for 1 minute. After arterial intervention follow-up arteriogram performed showing good outcome with improved flow through the peroneal artery and more brisk filling of the anterior tibial artery and posterior tibial arteries at the ankle.Wires and devices removed from the [place] sheath. This sheath pulled back into the aorta and a 0.035 guidewire placed. [place] sheath exchanged over the wire for a Angio-Seal device used to close the puncture of the left femoral artery. Patient taken to same-day surgery in good condition. Type of Anesthesia: Local (0.5% Marcaine) Anesthesia Comment: Plus MAC Findings: Normal proximal vessels with occluded anterior tibial artery posterior artery proximally with peroneal artery disease all the way to the ankle with reconstitution at the ankle of the posterior tibial anterior tibial arteries Type of Fluids Used:: Lactated Ringers Total Amount of Fluid Infused:: 600cc Urine output: 500cc EBL: 100cc Complications:: none Needle/Sponge Count:: correct Disposition/Condition: Pt. tolerated procedure without difficulty. Taken to [facility] in stable condition.
--- NOTE | 2025-08-07 16:22 | W.DIS.FURT ---
Summary of Discharge Discharge Summary of Date Date of Exam: 08/06/25 Admission Date Date of Admission: 08/03/25 Admission Diagnosis Patient Problems (Updated 08/04/25 @ 23:20 by Herberth Fairbanks) Tachycardia (Acute) R00.0 HTN (hypertension) (Chronic) I10 Uncontrolled insulin-treated type 2 diabetes mellitus (Chronic) Acute dehydration (Acute) E86.0 Diabetic ulcer of right foot (Chronic) E11.621, L97.519 Hospital Course: Patient is a 50-year-old female with a past medical history of uncontrolled diabetes, CAD, hypertension, hyperlipidemia, chronic pain syndrome and peripheral vascular disease presented with weakness, fever and worsening right foot pain. She was recently admitted for right foot diabetic ulcer requiring I&D. She states she completed all the antibiotics and did follow-up with Dr. Mckoy outpatient. She states she noticed that her foot was more swollen and painful so she came to the ER. Workup included labs which showed elevated WBC 20. Right foot x-ray and chest x-ray were obtained. Patient was started on IV fluids, antibiotics. Podiatry was consulted but then switched to vascular surgery. No obvious drainage noted from the right foot. Patient underwent CTA runoff which did show atherosclerosis with no significant occlusion. Patient's labs are monitored daily and electrolytes replaced as needed. She remained on IV antibiotics, blood cultures were negative. She underwent intervention on the right foot, atherectomy and balloon angioplasty of the right peroneal artery. Her white count was normal and her cultures remain negative. She was also complaining of dysphagia which has been going on for a while. She was treated for indigestion with famotidine, Carafate and Protonix. She will follow-up with Dr. Mckoy outpatient for possible EGD. Patient was stable for discharge on p.o. antibiotics. She will follow-up with vascular as scheduled. Vital Signs: Vital Signs (72 hours) 08/03/25 13:27 08/03/25 16:26 08/03/25 16:40 Temperature 98.2 F Pulse Rate 126 H Pulse Rate [Right Radial] Respiratory Rate 20 18 Blood Pressure 134/84 207/115 Blood Pressure [Right Arm] O2 Sat by Pulse Oximetry 100 Oxygen Delivery Method Room Air 08/03/25 16:41 08/03/25 16:45 08/03/25 17:00 Temperature Pulse Rate 127 H 127 H Pulse Rate [Right Radial] Respiratory Rate 15 20 Blood Pressure 185/98 Blood Pressure [Right Arm] O2 Sat by Pulse Oximetry 98 98 Oxygen Delivery Method 08/03/25 17:00 08/03/25 17:00 08/03/25 17:00 Temperature Pulse Rate 130 H Pulse Rate [Right Radial] Respiratory Rate 23 Blood Pressure 185/98 185/98 Blood Pressure [Right Arm] O2 Sat by Pulse Oximetry 99 Oxygen Delivery Method 08/03/25 17:17 08/03/25 17:26 08/03/25 17:30 Temperature Pulse Rate 129 H 128 H Pulse Rate [Right Radial] Respiratory Rate 20 16 16 Blood Pressure Blood Pressure [Right Arm] O2 Sat by Pulse Oximetry 97 Oxygen Delivery Method 08/03/25 17:45 08/03/25 18:00 08/03/25 18:00 Temperature Pulse Rate 128 H 126 H Pulse Rate [Right Radial] Respiratory Rate 21 25 H Blood Pressure 138/81 Blood Pressure [Right Arm] O2 Sat by Pulse Oximetry 100 100 Oxygen Delivery Method 08/03/25 18:15 08/03/25 18:30 08/03/25 18:30 Temperature Pulse Rate 129 H Pulse Rate [Right Radial] Respiratory Rate 20 Blood Pressure 149/84 149/84 Blood Pressure [Right Arm] O2 Sat by Pulse Oximetry 100 Oxygen Delivery Method 08/03/25 18:30 08/03/25 18:30 08/03/25 18:45 Temperature Pulse Rate 131 H 131 H 130 H Pulse Rate [Right Radial] Respiratory Rate 24 24 16 Blood Pressure Blood Pressure [Right Arm] O2 Sat by Pulse Oximetry 99 99 100 Oxygen Delivery Method 08/03/25 19:00 08/03/25 19:30 08/03/25 20:00 Temperature 99.6 F Pulse Rate Pulse Rate [Right Radial] 127 H Respiratory Rate 20 Blood Pressure Blood Pressure [Right Arm] 158/78 O2 Sat by Pulse Oximetry 99 Oxygen Delivery Method Room Air Room Air Room Air 08/03/25 20:17 08/03/25 21:17 08/03/25 23:39 Temperature 98.2 F Pulse Rate Pulse Rate [Right Radial] 107 H Respiratory Rate 16 16 24 Blood Pressure Blood Pressure [Right Arm] 122/68 O2 Sat by Pulse Oximetry 97 Oxygen Delivery Method Room Air 08/04/25 03:11 08/04/25 04:00 08/04/25 04:11 Temperature 98.4 F Pulse Rate Pulse Rate [Right Radial] 116 H Respiratory Rate 16 20 16 Blood Pressure Blood Pressure [Right Arm] 142/98 O2 Sat by Pulse Oximetry 99 Oxygen Delivery Method Room Air 08/04/25 07:00 08/04/25 07:47 08/04/25 12:00 Temperature 97.7 F 98.2 F Pulse Rate Pulse Rate [Right Radial] 106 H 110 H Respiratory Rate 20 20 Blood Pressure Blood Pressure [Right Arm] 133/69 145/85 O2 Sat by Pulse Oximetry 97 97 Oxygen Delivery Method Room Air Room Air Room Air 08/04/25 13:18 08/04/25 14:18 08/04/25 15:28 Temperature 98.2 F Pulse Rate Pulse Rate [Right Radial] 106 H Respiratory Rate 20 16 12 Blood Pressure Blood Pressure [Right Arm] 182/98 O2 Sat by Pulse Oximetry 99 Oxygen Delivery Method Room Air 08/04/25 17:00 08/04/25 18:30 08/04/25 19:00 Temperature Pulse Rate Pulse Rate [Right Radial] Respiratory Rate Blood Pressure Blood Pressure [Right Arm] 178/103 154/78 O2 Sat by Pulse Oximetry Oxygen Delivery Method Room Air 08/04/25 20:00 08/04/25 21:28 08/04/25 22:28 Temperature 98.7 F Pulse Rate Pulse Rate [Right Radial] 104 H Respiratory Rate 24 17 18 Blood Pressure Blood Pressure [Right Arm] 143/81 O2 Sat by Pulse Oximetry 100 Oxygen Delivery Method Room Air 08/05/25 00:00 08/05/25 03:48 08/05/25 04:13 Temperature 98.2 F 97.8 F Pulse Rate Pulse Rate [Right Radial] 101 H 100 H Respiratory Rate 24 20 16 Blood Pressure Blood Pressure [Right Arm] 135/79 131/75 O2 Sat by Pulse Oximetry 100 98 Oxygen Delivery Method Room Air Room Air 08/05/25 05:13 08/05/25 07:00 08/05/25 08:00 Temperature 98.3 F Pulse Rate Pulse Rate [Right Radial] 98 H Respiratory Rate 16 18 Blood Pressure Blood Pressure [Right Arm] 150/72 O2 Sat by Pulse Oximetry 99 Oxygen Delivery Method Room Air Room Air 08/05/25 12:00 08/05/25 15:05 08/05/25 17:20 Temperature 97.6 F 97.5 F L 97.5 F L Pulse Rate 96 H Pulse Rate [Right Radial] 100 H 78 Respiratory Rate 19 18 16 Blood Pressure 178/100 Blood Pressure [Right Arm] 160/82 118/87 O2 Sat by Pulse Oximetry 97 97 95 Oxygen Delivery Method Room Air Room Air Room Air 08/05/25 17:35 08/05/25 17:50 08/05/25 18:20 Temperature 97.4 F L 97.7 F 97.7 F Pulse Rate Pulse Rate [Right Radial] 83 82 88 Respiratory Rate 16 16 17 Blood Pressure Blood Pressure [Right Arm] 131/76 142/82 167/100 O2 Sat by Pulse Oximetry 95 97 98 Oxygen Delivery Method Room Air Room Air Room Air 08/05/25 18:50 08/05/25 19:00 08/05/25 19:20 Temperature 97.4 F L 98.3 F Pulse Rate Pulse Rate [Right Radial] 87 89 Respiratory Rate 17 17 Blood Pressure Blood Pressure [Right Arm] 178/10 158/99 O2 Sat by Pulse Oximetry 98 100 Oxygen Delivery Method Room Air Room Air Room Air 08/05/25 20:20 08/05/25 21:20 08/05/25 22:20 Temperature 97.9 F 99.0 F 98.2 F Pulse Rate Pulse Rate [Right Radial] 79 87 90 Respiratory Rate 16 17 17 Blood Pressure Blood Pressure [Right Arm] 156/89 144/76 155/77 O2 Sat by Pulse Oximetry 96 98 99 Oxygen Delivery Method Room Air Room Air Room Air 08/06/25 04:00 08/06/25 04:51 08/06/25 07:00 Temperature 98.9 F Pulse Rate Pulse Rate [Right Radial] 87 Respiratory Rate 17 16 Blood Pressure Blood Pressure [Right Arm] 135/74 O2 Sat by Pulse Oximetry 100 Oxygen Delivery Method Room Air Room Air 08/06/25 08:00 Temperature 98.8 F Pulse Rate Pulse Rate [Right Radial] 96 H Respiratory Rate 16 Blood Pressure Blood Pressure [Right Arm] 144/69 O2 Sat by Pulse Oximetry 100 Oxygen Delivery Method Room Air Labs: Laboratory Last Values WBC 9.9 X10^3/uL (3.6-10.0) 08/06/25 05:43 RBC 3.07 X10^6/uL (3.5-5.4) L 08/06/25 05:43 Hgb 9.3 g/dL (12.0-16.0) L 08/06/25 05:43 Hct 28.4 % (36.0-47.0) L 08/06/25 05:43 MCV 92.6 fL (80.0-100.0) 08/06/25 05:43 MCH 30.3 pg (27.0-34.0) 08/06/25 05:43 MCHC 32.7 g/dL (33.0-35.0) L 08/06/25 05:43 RDW 14.1 % (11.6-16.5) 08/06/25 05:43 Plt Count 405 X10^3/uL (150.0-450.0) 08/06/25 05:43 MPV 9.6 fL (7.4-11.0) 08/06/25 05:43 Neut % (Auto) 66.0 % (42.0-75.0) 08/06/25 05:43 Lymph % (Auto) 24.6 % (21.0-51.0) 08/06/25 05:43 [place] % (Auto) 7.2 % (0.0-13.0) 08/06/25 05:43 Eos % (Auto) 2.0 % (0.9-2.9) 08/06/25 05:43 Baso % (Auto) 0.2 % (0.2-1.0) 08/06/25 05:43 Neut # (Auto) 6.6 x10^3/uL (2.2-4.8) H 08/06/25 05:43 Lymph # (Auto) 2.5 X10^3/uL (1.3-2.9) 08/06/25 05:43 [place] # (Auto) 0.7 x10^3/uL (0.3-0.8) 08/06/25 05:43 Eos # (Auto) 0.2 x10^3/uL (0.0-0.2) 08/06/25 05:43 Baso # (Auto) 0.0 X10^3/uL (0.0-0.1) 08/06/25 05:43 Absolute Nucleated RBC 0.1 /100WBC 08/06/25 05:43 PT 13.6 SECONDS (11.8-14.3) 08/03/25 14:55 INR Target Range - 08/03/25 14:55 INR 1.03 (0.8-1.3) 08/03/25 14:55 Sodium 140 mmol/L (136-145) 08/06/25 05:43 Corrected Sodium 141 mmol/L (136-145) 08/06/25 05:43 Potassium 3.4 mmol/L (3.5-5.1) L 08/06/25 05:43 Chloride 102 mmol/L (98-107) 08/06/25 05:43 Carbon Dioxide 27.7 mmol/L (21-32) 08/06/25 05:43 BUN 10 mg/dL (7-18) 08/06/25 05:43 Creatinine 0.68 mg/dL (0.55-1.02) 08/06/25 05:43 Est GFR (MDRD) Af Amer > 60 (>60) 08/06/25 05:43 Est GFR (MDRD) Non-Af > 60 (>60) 08/06/25 05:43 Glucose 137 mg/dL (65-99) H 08/06/25 05:43 POC Glucose (mg/dL) 130 mg/dL (65-99) H 08/06/25 05:12 Hemoglobin A1c 10.7 % 08/03/25 14:55 Lactic Acid 1.0 mmol/L (0.4-2.0) 08/03/25 16:05 Calcium 8.9 mg/dL (8.5-10.1) 08/06/25 05:43 Corrected Calcium 10.2 mg/dL (8.5-10.1) H 08/06/25 05:43 Magnesium 1.9 mg/dL (2.0-2.9) L 08/06/25 05:43 Total Bilirubin 0.60 mg/dL (0.2-1.0) 08/06/25 05:43 AST 15 Units/L (15-37) 08/06/25 05:43 ALT 7 Units/L (12-78) L 08/06/25 05:43 Alkaline Phosphatase 143 Units/L (46-116) H 08/06/25 05:43 Creatine Kinase 90 Units/L (26-192) 08/03/25 14:55 Troponin I High Sens 7.2 ng/L (4.0-60.0) 08/03/25 14:55 Total Protein 7.4 g/dL (6.4-8.2) 08/06/25 05:43 Albumin 2.4 g/dL (3.4-5.0) L 08/06/25 05:43 Globulin 5.0 g/dL (2.5-4.5) H 08/06/25 05:43 Albumin/Globulin Ratio 0.5 Ratio (1.1-2.1) L 08/06/25 05:43 Vancomycin Trough 10.0 ug/mL (15-20) L 08/05/25 08:29 Blood Type A POSITIVE 08/05/25 09:43 Antibody Screen Negative 08/05/25 09:43 Reason For Visit: RIGHT FOOT DIABETIC ULCER, UNCONTROLLED DM TYPE 2 Discharge Diagnosis All Active Problems (Updated 08/04/25 @ 23:20 by Herberth Fairbanks) Atherosclerosis of [place] arteries of extremities with rest pain, left leg (Acute) Atherosclerosis of [place] arteries of extremities with rest pain, right leg (Acute) Hypomagnesemia (Acute) Tachycardia (Acute) HTN (hypertension) (Chronic) Uncontrolled insulin-treated type 2 diabetes mellitus (Chronic) Acute dehydration (Acute) Diabetic ulcer of right foot (Chronic) Diabetic foot ulcer (Acute) Pneumonia (Acute) Sinus tachycardia (Acute) Uncontrolled diabetes mellitus (Chronic) Hypokalemia (Acute) Diabetic ulcer of foot associated with diabetes mellitus due to underlying condition, limited to breakdown of skin (Acute) Sepsis (Acute) Callous ulcer (Acute) Acute sinusitis (Acute) Hypotension (Acute) Fracture of base of fifth metatarsal bone of right foot (Acute) Sprain of ankle, right (Acute) Oral candidiasis (Acute) Chest pain (Acute) Claudication of both lower extremities (Acute) Abdominal pain (Acute) Tooth infection (Acute) HLD (hyperlipidemia) (Acute) GERD (gastroesophageal reflux disease) (Chronic) Encounter for tobacco use cessation counseling (Acute) Coronary artery disease (Chronic) Hospital discharge follow-up (Acute) Non-ST elevated myocardial infarction (non-STEMI) (Acute) Vaginal claudia (Acute) Peripheral vascular disease (Chronic) HTN (hypertension) (Chronic) Neuropathy (Acute) Chronic constipation (Acute) Dysphagia (Acute) Chronic cervical pain (Chronic) Left lumbar radiculopathy (Acute) Plan of Treatment: Continue with present treatment and follow up plan. Pt is to keep follow up appointment as instructed and take medications as ordered. Discharge Medications Discharge Medications: clindamycin Allergy (Severe, Verified 07/24/25 15:56) ANAPHALEXIS REACTION Penicillins Allergy (Unknown, Verified 07/24/25 15:56) CONTINUE taking the following medications alprazolam 1 mg tablet 1 mg PO BID 08/04/25 [History] New Prescriptions levofloxacin 500 mg tablet 500 mg PO QDAY #7 tabs 08/06/25 [Rx] pantoprazole 40 mg tablet,delayed release 40 mg PO QDAY 30 days #30 tabs 08/06 [Rx] sucralfate 1 gram tablet 1 g PO TID 10 days #30 tabs 08/06/25 [Rx] Discharge Disposition Discharge Disposition: to home Discharge Condition: stable Discharge Plan Discharge Plan Hospital Course: Patient is a 50-year-old female with a past medical history of uncontrolled diabetes, CAD, hypertension, hyperlipidemia, chronic pain syndrome and peripheral vascular disease presented with weakness, fever and worsening right foot pain. She was recently admitted for right foot diabetic ulcer requiring I&D. She states she completed all the antibiotics and did follow-up with Dr. Mckoy outpatient. She states she noticed that her foot was more swollen and painful so she came to the ER. Workup included labs which showed elevated WBC 20. Right foot x-ray and chest x-ray were obtained. Patient was started on IV fluids, antibiotics. Podiatry was consulted but then switched to vascular surgery. No obvious drainage noted from the right foot. Patient underwent CTA runoff which did show atherosclerosis with no significant occlusion. Patient's labs are monitored daily and electrolytes replaced as needed. She remained on IV antibiotics, blood cultures were negative. She underwent intervention on the right foot, atherectomy and balloon angioplasty of the right peroneal artery. Her white count was normal and her cultures remain negative. She was also complaining of dysphagia which has been going on for a while. She was treated for indigestion with famotidine, Carafate and Protonix. She will follow-up with Dr. Mckoy outpatient for possible EGD. Patient was stable for discharge on p.o. antibiotics. She will follow-up with vascular as scheduled. Patient Disposition: 01 HOME, SELF-CARE Condition: Stable Health Concerns: Post Hospitalization: new medications and changes needed to prevent readmission or further decline. Pt educated and given instructions on all concerns. Care Plan Goals: Problem: Pain/Alteration in Comfort Goal: Improve/ Resolve Pain; Achieve Pain Tolerance Instructions: Take pain medications as prescribed. Contact your primary care provider if your pain is unrelieved or worsens. Follow up with primary care provider as directed. Plan of Treatment: Continue with present treatment and follow up plan. Pt is to keep follow up appointment as instructed and take medications as ordered. Prescription drug monitoring program results: PDMP reviewed and no concerns id entified Prescriptions: New sucralfate 1 gram Tablet 1 g PO TID 10 Days Qty: 30 0RF Rx Instructions: take 15 mins before meal levofloxacin 500 mg tablet 500 mg PO QDAY Qty: 7 0RF pantoprazole 40 mg tablet,delayed release (DR/EC) 40 mg PO QDAY 30 Days Qty: 30 0RF Continued gabapentin 800 mg tablet 800 mg PO TID 30 Days Qty: 90 1RF clopidogrel 75 mg tablet 75 mg PO QDAY Qty: 90 0RF atorvastatin 80 mg tablet 80 mg PO QPM Qty: 90 0RF insulin glargine [Lantus Solostar U-100 Insulin] 100 unit/mL (3 mL) insulin pen 40 unit subcut QAM 90 Days Qty: 36 1RF Rx Instructions: take 40 units daily metoprolol succinate 50 mg Tablet Extended Release 24 Hr 50 mg PO DAILY 30 Days Qty: 30 0RF Discontinued montelukast 10 mg tablet 10 mg PO QDAY Qty: 30 0RF hydroxyzine HCl 25 mg tablet 25 mg PO BID PRN (Reason: anxiety) Qty: 60 1RF alprazolam 1 mg tablet 1 mg PO BID MDD 2 PRN (Reason: anxiety) 30 Days Qty: 60 0RF duloxetine 60 mg capsule,delayed release(DR/EC) 60 mg PO QPM Qty: 30 1RF fluconazole 150 mg tablet 150 mg PO Q3D Qty: 2 0RF insulin aspart U-100 100 unit/mL (3 mL) insulin pen 1 sliding scale dose subcut USEASDIRECTD 90 Days Qty: 15 2RF Rx Instructions: Max 30 units daily pantoprazole 40 mg tablet,delayed release (DR/EC) 40 mg PO QDAY 30 Days Qty: 30 1RF fluticasone propionate 50 mcg/actuation spray,suspension 1 spray intranasal BID Qty: 16 1RF No Action oxycodone-acetaminophen 10-325 mg tablet 1 tab PO QID MDD 4 PRN (Reason: pain) 30 Days Qty: 120 0RF alprazolam 1 mg tablet 1 mg PO BID MDD 2 PRN (Reason: anxiety) 30 Days Qty: 60 0RF Orders to Discharge Patient Discharge Orders: Discharge (Routine); Ordered 08/06/25 Ordered By: Soumya Bang Follow ups/Referrals Follow ups/Referrals: RAYO GÓMEZ [STAFF PHYSICIAN, MEDICAL] - 08/19/25 2:00 pm Soumya Bang MD [Primary Care Provider, Unknown] - 08/14/25 2:30 pm Herberth Fairbanks [STAFF PHYSICIAN, Unknown] - 08/13/25 11:00 am Instructions Instructions: Endovascular Therapy for Peripheral Vascular Disease: What to Know After Stand Alone Forms: Excuse From Work or School, Find Help Web Site, Post Hospital Follow Up Care Print Language: ARMENIAN
== END 2025-08-06 12:00 | disposition home or self-care (01) ==
LOC: MED/SURG 13:11 → ER 13:11 → MED/SURG 19:07
PROVIDERS: ADMIT Obstetrics & Gynecology Obstetrics; ATTEND Internal Medicine
DX: Z59.41 Food insecurity; Z65.8 Other specified problems related to psychosocial circumstances; R26.89 Other abnormalities of gait and mobility; Z59.868 Other specified financial insecurity; E11.621 Type 2 diabetes mellitus with foot ulcer; E86.0 Dehydration; I10 Essential (primary) hypertension; L97.519 Non-pressure chronic ulcer of other part of right foot with unspecified severity; R07.89 Other chest pain; R94.31 Abnormal electrocardiogram [ECG] [EKG]; I25.2 Old myocardial infarction; E83.52 Hypercalcemia; R53.1 Weakness; E78.5 Hyperlipidemia, unspecified; R74.8 Abnormal levels of other serum enzymes; E11.65 Type 2 diabetes mellitus with hyperglycemia; D72.828 Other elevated white blood cell count; Z59.12 Inadequate housing utilities; I70.223 Atherosclerosis of native arteries of extremities with rest pain, bilateral legs; Z58.89 Other problems related to physical environment; R00.0 Tachycardia, unspecified; E83.42 Hypomagnesemia; I25.10 Atherosclerotic heart disease of native coronary artery without angina pectoris; D64.89 Other specified anemias; Z79.4 Long term (current) use of insulin

== ENCOUNTER 2025-08-22 15:13 | Observation (INO) ==
--- NOTE | 2025-08-22 15:53 | DR.EXTPAIN ---
HPI Time seen Time Seen by Provider: 08/22/25 15:49 Complaint/Symptoms Chief Complaint Doctor Comments: Patient had a procedure done on her right foot on 1020 and she developed more pain and swelling of that right foot with some sloughing in that area. They called Dr. Fairbanks's office this morning and they told her to go to the emergency room.Actually a procedure was done by operating on an occluded trifurcation vessel of the right leg with a none healing diabetic foot ulcer.This patient having increased pain and swelling of that right foot today. PMH PMH Past Medical History: Coronary Artery Disease, Diabetes, Dyslipidemia and Hypertension Past Surgical History: Yes Surgical History: Hysterectomy Family History Family Medical History: Diabetes Mellitus, Cancer, VA and Hypertension Social History Do you use any recreational Drugs:: No ROS Review of Systems Constitutional: Other (swelling of r foot with increases drainage from ) Eyes: No Symptoms Reported ENTM: No Symptoms Reported Respiratoy: No Symptoms Reported Cardiovascular: No Symptoms Reported Genitourinary: No Symptoms Reported Neurological: No Symptoms Reported Musculoskeletal: Right and Foot (pain,swelling and ulcer) Integumentary: Wound (r foot) Hematologic/Lymphatic: No Symptoms Reported Endocrine: No Symptoms Reported Psychiatric: No Symptoms Reported All Other Systems: Reviewed and Negative PE Vital Signs Vitals: Vital Signs Temperature 98.8 F Pulse Rate [Right Brachial] 97 Pulse Rate 96 Pulse Rate 100 Pulse Rate 102 Pulse Rate 101 Pulse Rate 101 Pulse Rate 97 Pulse Rate 95 Pulse Rate 98 Pulse Rate 102 Pulse Rate 103 Pulse Rate 101 Pulse Rate 101 Pulse Rate 105 Respiratory Rate 18 Respiratory Rate 9 Respiratory Rate 12 Respiratory Rate 17 Respiratory Rate 24 Respiratory Rate 20 Respiratory Rate 15 Respiratory Rate 12 Respiratory Rate 13 Respiratory Rate 12 Respiratory Rate 20 Respiratory Rate 20 Blood Pressure [Right Arm] 172/92 Blood Pressure 172/92 Blood Pressure 179/79 Blood Pressure 166/85 Blood Pressure 160/84 Blood Pressure 197/98 Blood Pressure 166/81 Blood Pressure 166/79 Blood Pressure 148/97 O2 Sat by Pulse Oximetry 99 O2 Sat by Pulse Oximetry 97 O2 Sat by Pulse Oximetry 98 O2 Sat by Pulse Oximetry 97 O2 Sat by Pulse Oximetry 97 O2 Sat by Pulse Oximetry 98 O2 Sat by Pulse Oximetry 97 O2 Sat by Pulse Oximetry 96 O2 Sat by Pulse Oximetry 97 O2 Sat by Pulse Oximetry 98 O2 Sat by Pulse Oximetry 98 O2 Sat by Pulse Oximetry 98 O2 Sat by Pulse Oximetry 93 O2 Sat by Pulse Oximetry 97 General Limitations: Physical Limitation (due to lesion on r foot) General Appearance: In Distress (moderate) Head Head Exam: Normal Inspection, Atraumatic and Normocephalic Eyes Eye exam: Normal Appearance, PERRL and EOMI ENT ENT Exam: Normal Exam, Normal Oropharynx and Normal External Ear Exam Neck Neck Exam: Normal Inspection, Full ROM and Trachea Midline Chest Chest Inspection: Normal Inspection and Symmetric Chest Wall Rise Respiratory Respiratory Exam: Normal Lung Sounds Bilat Respiratory Exam: Bilateral: Clear to Auscultation Cardiovascular Cardiovascular Exam: Regular Rate and Normal Rhythm Abdominal Exam Abdominal Exam: Normal Inspection Extremities Extremities Exam: Tenderness, Joint Swelling and Other (drainage from r foot) Upper Extremities Shoulder Exam: Normal Inspection Arm Exam: Normal Inspection Elbow Exam: Normal Inspection Forearm Exam: Normal Inspection Hand Exam: Normal Inspection Lower Extremities Hip/Pelvis Exam: Normal Inspection Upper Leg Exam: Normal Inspection Knee Exam: Normal Inspection Lower Leg Exam: Normal Inspection Ankle Exam: Tenderness (r ankle) and Swelling Foot/Toe Exam: Tenderness, Swelling and Other (drainage from r foot and toes with warmth) Neurological Neurological Exam: Alert, Oriented X3 and CN II-XII Intact Psychiatric Psychiatric Exam: Agitated Skin Skin Exam: Warm, Dry and Other (drainage from r foot and toes) COURSE Treatment Treatment: Patient made relatively stable during ER evaluation. We did do a lactic acid level on this patient and it was 2.3. We get blood cultures x 2 the patient was given Cipro 400 mg IV x [address] Fairbanks did come in to see the patient he said admit the patientTo his/her services and he will write the admit orders.This patient was given morphine 4 mg IV for pain and was given Zofran 4 mg IV for pain.This patient also was given a 1 L bolus of normal saline. ROR Labs Reviewed Laboratory Results Reviewed?: Yes 08/22/25 15:40 08/22/25 15:40 Laboratory: WBC 8.5 X10^3/uL (3.6-10.0) 08/22/25 15:40 RBC 3.55 X10^6/uL (3.5-5.4) 08/22/25 15:40 Hgb 10.7 g/dL (12.0-16.0) L 08/22/25 15:40 Hct 32.6 % (36.0-47.0) L 08/22/25 15:40 MCV 91.9 fL (80.0-100.0) 08/22/25 15:40 MCH 30.1 pg (27.0-34.0) 08/22/25 15:40 MCHC 32.7 g/dL (33.0-35.0) L 08/22/25 15:40 RDW 15.6 % (11.6-16.5) 08/22/25 15:40 Plt Count 276 X10^3/uL (150.0-450.0) 08/22/25 15:40 MPV 10.0 fL (7.4-11.0) 08/22/25 15:40 Neut % (Auto) 68.0 % (42.0-75.0) 08/22/25 15:40 Lymph % (Auto) 25.7 % (21.0-51.0) 08/22/25 15:40 [place] % (Auto) 4.3 % (0.0-13.0) 08/22/25 15:40 Eos % (Auto) 1.0 % (0.9-2.9) 08/22/25 15:40 Baso % (Auto) 1.0 % (0.2-1.0) 08/22/25 15:40 Neut # (Auto) 5.8 x10^3/uL (2.2-4.8) H 08/22/25 15:40 Lymph # (Auto) 2.2 X10^3/uL (1.3-2.9) 08/22/25 15:40 [place] # (Auto) 0.4 x10^3/uL (0.3-0.8) 08/22/25 15:40 Eos # (Auto) 0.1 x10^3/uL (0.0-0.2) 08/22/25 15:40 Baso # (Auto) 0.1 X10^3/uL (0.0-0.1) 08/22/25 15:40 Absolute Nucleated RBC 0.0 /100WBC 08/22/25 15:40 Sodium 136 mmol/L (136-145) 08/22/25 15:40 Corrected Sodium 143 mmol/L (136-145) 08/22/25 15:40 Potassium 2.7 mmol/L (3.5-5.1) L* 08/22/25 15:40 Chloride 94 mmol/L (98-107) L 08/22/25 15:40 Carbon Dioxide 36.0 mmol/L (21-32) H 08/22/25 15:40 BUN 19 mg/dL (7-18) H 08/22/25 15:40 Creatinine 1.27 mg/dL (0.55-1.02) H 08/22/25 15:40 Est GFR (MDRD) Af Amer 57 (>60) L 08/22/25 15:40 Est GFR (MDRD) Non-Af 47 (>60) L 08/22/25 15:40 Glucose 371 mg/dL (65-99) H 08/22/25 15:40 Lactic Acid 1.5 mmol/L (0.4-2.0) 08/22/25 17:38 Calcium 8.9 mg/dL (8.5-10.1) 08/22/25 15:40 Corrected Calcium 9.5 mg/dL (8.5-10.1) 08/22/25 15:40 Total Bilirubin 0.30 mg/dL (0.2-1.0) 08/22/25 15:40 AST 22 Units/L (15-37) 08/22/25 15:40 ALT 14 Units/L (12-78) 08/22/25 15:40 Alkaline Phosphatase 155 Units/L (46-116) H 08/22/25 15:40 Total Protein 9.0 g/dL (6.4-8.2) H 08/22/25 15:40 Albumin 3.3 g/dL (3.4-5.0) L 08/22/25 15:40 Globulin 5.7 g/dL (2.5-4.5) H 08/22/25 15:40 Albumin/Globulin Ratio 0.6 Ratio (1.1-2.1) L 08/22/25 15:40 Opioid Opioid Risk Tool Age (Michael box if 16-45): No History of Preadolescent Sexual Abuse: No Total: 0 Total Score Risk Category: Low Risk Copyright: Gian MARTÍNEZ predicting aberrant behaviors Discharge Plan Diagnosis Discharge Problem: Cellulitis of foot, right, Sepsis Discharge Plan Patient Disposition: ADMITTED INPATIENT Condition: Stable
[2025-08-22 15:56] LABS: MEAN PLATELET VOLUME 10.0 fL (7.4-11.0); RED CELL DISTRIBUTION WIDTH 15.6 % (11.6-16.5)
[2025-08-22 16:10] LABS: COR CA(FOR HYPOALB) 9.5 mg/dL (8.5-10.1); COR NA(FOR HYPERGLY) 143.0 mmol/L (136-145); CREATININE 1.27 mg/dL (0.55-1.02); eGFR NON BLACK RACES 47.0 (>60)
[2025-08-22] MEDS: ZOFRAN INJ 4 MG VIAL IVP ONE (16:42)
[2025-08-22] MEDS: NS 1,000 ML IV 1,000 ML IV ONE (16:42)
[2025-08-22] MEDS: MORPHINE SULFATE INJ 4 MG IVP ONE (16:43)
[2025-08-22] MEDS: K-RIDER 10 MEQ/100 ML WATER 10 MEQ/100 ML BAG IV ONE ×2 (16:43→17:38)
[2025-08-22] MEDS: CIPRO IV 400 MG PREMIX* 400 MG/200 ML IV.SOLN. IV ONE (18:05)
[2025-08-22] MEDS: DILAUDID INJ IVP ONE (19:52)
[2025-08-22] MEDS ORDERED: NS 250 ML IV 250 ML IV ONE (21:57)
[2025-08-22] MEDS: DIFLUCAN PO ONE (21:59)
[2025-08-22] MEDS: NS 250 ML IV 25 ML IV PRN (22:03)
[2025-08-22] MEDS: NICOTINE PATCH TD SCH (22:26)
[2025-08-22] MEDS: NEURONTIN CAP 400 MG PO SCH (22:26)
[2025-08-22] MEDS: ZOSYN VIAL 3.375 GRAMS 3.375 G in NS 100 ML IV 100 ML IV SCH (22:26)
[2025-08-22] MEDS: LR 1,000 ML IV 1,000 ML IV SCH (22:27)
[2025-08-22 22:55] VITALS: BMI 20.5
[2025-08-22] MEDS: PERCOCET TAB 5/325 MG PO PRN (23:11)
[2025-08-23] MEDS: CONSULT PHARMACY - POTASSIUM & MAGNESIUM XX SCH (00:01)
[2025-08-23] MEDS ORDERED: DILAUDID INJ ONE ×2 (00:33→04:35)
[2025-08-23] MEDS: DILAUDID INJ IVP PRN (00:35)
[2025-08-23] MEDS: NovoLIN R (or HumuLIN R) SUBCUT PRN (05:41)
[2025-08-23] MEDS: CARAFATE ORAL SUSP PO SCH (05:41)
[2025-08-23 06:22] LABS: MEAN PLATELET VOLUME 10.1 fL (7.4-11.0); RED CELL DISTRIBUTION WIDTH 15.6 % (11.6-16.5)
[2025-08-23 06:35] LABS: COR CA(FOR HYPOALB) 9.5 mg/dL (8.5-10.1); COR NA(FOR HYPERGLY) 145 mmol/L (136-145); CREATININE 0.71 mg/dL (0.55-1.02); eGFR NON BLACK RACES > 60 (>60)
[2025-08-23] MEDS ORDERED: K-DUR TAB 20 MEQ PO SCH (07:00)
[2025-08-23] MEDS ORDERED: CONSULT PHARMACY - POTASSIUM & MAGNESIUM XX SCH (07:00)
[2025-08-23] MEDS ORDERED: MAG-OX TAB PO SCH (09:00)
[2025-08-23] MEDS: CYMBALTA PO SCH (09:17)
[2025-08-23] MEDS: CELEXA PO SCH (09:17)
[2025-08-23] MEDS: TOPROL XL PO SCH (09:18)
[2025-08-23] MEDS: COLACE CAP 100 MG PO SCH (09:18)
[2025-08-23] MEDS: FLONASE NASAL SPRAY ENOSTRIL SCH (09:18)
[2025-08-23] MEDS: ATARAX TAB 25 MG PO SCH (09:18)
[2025-08-23] MEDS: COLACE CAP 100 MG PO ONE (09:24)
[2025-08-23] MEDS: LR 1,000 ML IV 1,000 ML with MAGNESIUM SULFATE 50% INJ VIAL 2 G IV SCH (10:27)
[2025-08-23] MEDS: POTASSIUM CHLORIDE INJ 40 MEQ VIAL 40 MEQ, POTASSIUM CHLORIDE INJ 20 MEQ VIAL 20 MEQ in... IV ONE (10:28)
--- NOTE | 2025-08-23 13:28 | DR.H&P ---
H&P History & Physical for Day of: H&P Date: 08/22/25 Chief Complaint Chief Complaint: Pain and swelling of the right leg History of Present Illness History of Present Illness: This is a 50-year-old female with significant diabetes, coronary disease status post 1 coronary stent for myocardial infarction 2 years ago, hypertension, hyperlipidemia who has had wound of the right foot requiring arterial intervention with atherectomy and angioplasty of the peroneal artery which is the only significant runoff into the foot. She was seen in the office 2 days prior to admission and was doing well. The wound is healing. Since that time she has had significant increase in swelling of the right foot and redness. Right foot remains warm. Patient does continue to use tobacco on a regular basis she has a greater than 30-year pack year smoking history Past Medical History Past Medical History: Coronary Artery Disease, Diabetes, Dyslipidemia and Hypertension Past Surgical History Surgical History: Hysterectomy and Other Family History Family Medical History: Diabetes Mellitus, Cancer, NC and Hypertension Social History Does patient currently use any type of tobacco product: Yes Have you used tobacco products in the last 12 months: Yes Type of Tobacco Use: Cigarettes How many years tobacco product used: 35 Packs per day or dips/chews per day: 0.5 Does any household member use tobacco: No Alcohol Use: None Drug Use: None Medications Home Medications: Home Medications Medication Instructions Recorded Confirmed Type duloxetine 60 mg capsule,delayed 60 mg PO QDAY 08/22/25 08/22/25 History release hydroxyzine HCl 25 mg tablet 25 mg PO QDAY 08/22/25 08/22/25 History metoprolol succinate 50 mg 50 mg PO QDAY 08/22/25 08/22/25 History tablet,extended release 24 hr alprazolam 1 mg twice daily as needed Atorvastatin, 80 mg daily Plavix 75 mg daily Duloxetine 60 mg a day Gabapentin 800 mg 3 times daily Hydroxyzine 25 mg daily Insulin 40 units subcu daily Metoprolol succinate 50 mg daily Protonix 40 mg daily Allergies Allergies Allergy/AdvReac Type Severity Reaction Status Date / Time clindamycin Allergy Severe ANAPHALEXIS Verified 08/22/25 16:00 REACTION Penicillins Allergy Unknown Verified 08/22/25 16:00 Labs 08/23/25 05:33 08/23/25 05:33 Labs: Laboratory WBC 5.2 X10^3/uL (3.6-10.0) 08/23/25 05:33 RBC 2.93 X10^6/uL (3.5-5.4) L 08/23/25 05:33 Hgb 8.7 g/dL (12.0-16.0) L D 08/23/25 05:33 Hct 26.7 % (36.0-47.0) L 08/23/25 05:33 MCV 91.0 fL (80.0-100.0) 08/23/25 05:33 MCH 29.6 pg (27.0-34.0) 08/23/25 05:33 MCHC 32.5 g/dL (33.0-35.0) L 08/23/25 05:33 RDW 15.6 % (11.6-16.5) 08/23/25 05:33 Plt Count 210 X10^3/uL (150.0-450.0) 08/23/25 05:33 MPV 10.1 fL (7.4-11.0) 08/23/25 05:33 Neut % (Auto) 43.5 % (42.0-75.0) 08/23/25 05:33 Lymph % (Auto) 45.4 % (21.0-51.0) 08/23/25 05:33 Rice % (Auto) 7.2 % (0.0-13.0) 08/23/25 05:33 Eos % (Auto) 2.8 % (0.9-2.9) 08/23/25 05:33 Baso % (Auto) 1.1 % (0.2-1.0) H 08/23/25 05:33 Neut # (Auto) 2.3 x10^3/uL (2.2-4.8) 08/23/25 05:33 Lymph # (Auto) 2.4 X10^3/uL (1.3-2.9) 08/23/25 05:33 Rice # (Auto) 0.4 x10^3/uL (0.3-0.8) 08/23/25 05:33 Eos # (Auto) 0.1 x10^3/uL (0.0-0.2) 08/23/25 05:33 Baso # (Auto) 0.1 X10^3/uL (0.0-0.1) 08/23/25 05:33 Absolute Nucleated RBC 0.1 /100WBC 08/23/25 05:33 Sodium 140 mmol/L (136-145) 08/23/25 05:33 Corrected Sodium 145 mmol/L (136-145) 08/23/25 05:33 Potassium 3.0 mmol/L (3.5-5.1) L 08/23/25 05:33 Chloride 102 mmol/L (98-107) 08/23/25 05:33 Carbon Dioxide 30.2 mmol/L (21-32) 08/23/25 05:33 BUN 12 mg/dL (7-18) 08/23/25 05:33 Creatinine 0.71 mg/dL (0.55-1.02) 08/23/25 05:33 Est GFR (MDRD) Af Amer > 60 (>60) 08/23/25 05:33 Est GFR (MDRD) Non-Af > 60 (>60) 08/23/25 05:33 Glucose 302 mg/dL (65-99) H 08/23/25 05:33 POC Glucose (mg/dL) 185 mg/dL (65-99) H 08/23/25 11:15 Lactic Acid 1.5 mmol/L (0.4-2.0) 08/22/25 17:38 Calcium 8.1 mg/dL (8.5-10.1) L 08/23/25 05:33 Corrected Calcium 9.5 mg/dL (8.5-10.1) 08/23/25 05:33 Magnesium 1.3 mg/dL (2.0-2.9) L 08/23/25 05:33 Total Bilirubin 0.30 mg/dL (0.2-1.0) 08/23/25 05:33 AST 16 Units/L (15-37) 08/23/25 05:33 ALT 10 Units/L (12-78) L 08/23/25 05:33 Alkaline Phosphatase 107 Units/L (46-116) 08/23/25 05:33 Total Protein 6.5 g/dL (6.4-8.2) 08/23/25 05:33 Albumin 2.3 g/dL (3.4-5.0) L 08/23/25 05:33 Globulin 4.2 g/dL (2.5-4.5) 08/23/25 05:33 Albumin/Globulin Ratio 0.5 Ratio (1.1-2.1) L 08/23/25 05:33 Review of Systems Constitutional: See HPI Eyes: No Symptoms Reported ENT: No Symptoms Reported Respiratory: No Symptoms Reported Cardiovascular: No Symptoms Reported Gastrointestinal: No Symptoms Reported Genitourinary: No Symptoms Reported Musculoskeletal: See HPI Skin: See HPI Neurological: See HPI Physical Exam Vital Signs: Vital Signs Temperature 98.9 F Temperature 98.4 F Pulse Rate [Right Brachial] 99 Pulse Rate [Right Brachial] 92 Respiratory Rate 18 Respiratory Rate 18 Blood Pressure [Right Arm] 159/80 Blood Pressure [Right Arm] 142/75 O2 Sat by Pulse Oximetry 97 O2 Sat by Pulse Oximetry 98 Oriented: Normal, Time, Person and Place Eyes: Normal Ear: Normal Nose: Normal Throat: Normal Respiratory: Clear Throughout Cardiovascular: Normal : Normal Auscultation: Bowel Sounds: Normal Palpation: Normal Tenderness: Normal Skin: Wound (Swelling of right foot with desquamation of skin. Wound between the 3rd and 4th toes which is improving. Mild cellulitis of the right foot) Musculoskeletal: Normal Psychiatric: Normal Mood Description: Fearful and Anxious Affect: Anxious Speech Pattern: Clear and Appropriate Assessment/Plan (1) Cellulitis of foot, right: Status: Acute Plan: Continue Lovenox. Will obtain lower extremity Doppler studies to assess blood flow. 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, left leg: Status: Acute Plan: Patient noted to have significant disease of the left leg which will be addressed at a later time currently without significant symptoms other than rest pain (3) Atherosclerosis of pauma arteries of extremities with rest pain, right leg: Status: Acute (4) HTN (hypertension): Qualifiers: Hypertension type: primary hypertension Qualified Code(s): I10 - Essential (primary) hypertension Status: Chronic Plan: Home medications (5) Uncontrolled insulin-treated type 2 diabetes mellitus: Status: Chronic (6) GERD (gastroesophageal reflux disease): Qualifiers: Esophagitis presence: esophagitis presence not specified Qualified Code(s): K21.9 - Gastro-esophageal reflux disease without esophagitis Status: Chronic Plan: Continue protonix (7) Tobacco abuse disorder: Status: Acute Plan: Nicotine patches (8) Coronary artery disease status post coronary stent insertion: Status: Acute Plan: Stable. Continue all regular medication
--- NOTE | 2025-08-23 13:33 | NOTE.SOAP ---
Soap Note Note for Day of Date of Exam: 08/23/25 Subjective Data Subjective Data: Patient with known significant tobacco abuse, coronary artery disease and prefracture disease who had intervention of the right leg recently. Now has cellulitis of the right foot. Patient does feel better since admission last night with IV medications for antibiotics and pain medication Patient with known reflux. Complaining of some difficulty swallowing now she has had endoscopy in the past Objective Data Temperature: 98.9 F Pulse Rate: 99 Respiratory Rate: 18 Blood Pressure: 159/80 O2 Sat by Pulse Oximetry: 97 Objective Data: Right foot warm. Redness improved and swelling decreased. Patient's notes it to be much less painful Assessment Assessment: Right leg improved on IV antibiotics. Will continue those. Patient with possible dysphagia secondary to reflux. Plan Plan: Continue IV antibiotics. Will obtain follow-up arterial Doppler studies on Monday. Possibly will require EGD and dilatation of esophagus
[2025-08-23] MEDS: ZOFRAN INJ 4 MG VIAL IVP PRN (13:45)
[2025-08-23] MEDS: ZOFRAN INJ 4 MG VIAL ONE (13:46)
[2025-08-23] MEDS: LOVENOX INJ 80 MG SYR SC SCH (14:22)
[2025-08-23] MEDS: ALPRAZOLAM ODT PO PRN (21:33)
[2025-08-23] MEDS: REQUIP PO SCH (21:33)
[2025-08-23] MEDS: MAG-OX TAB PO SCH (21:34)
[2025-08-23] MEDS: LIPITOR TAB 80 MG PO SCH (21:34)
[2025-08-23] MEDS: SINGULAIR TAB 10 MG PO SCH (21:34)
[2025-08-23] MEDS: SNACK - Diabetic Appropriate PO SCH (21:39)
[2025-08-24] MEDS: TYLENOL 325 MG TAB PO PRN (00:37)
[2025-08-24 06:46] LABS: MEAN PLATELET VOLUME 10.5 fL (7.4-11.0); RED CELL DISTRIBUTION WIDTH 15.4 % (11.6-16.5)
[2025-08-24 06:58] LABS: COR CA(FOR HYPOALB) 9.7 mg/dL (8.5-10.1); COR NA(FOR HYPERGLY) 144 mmol/L (136-145); CREATININE 0.73 mg/dL (0.55-1.02); eGFR NON BLACK RACES > 60 (>60)
--- NOTE | 2025-08-24 10:06 | NOTE.SOAP ---
Soap Note Note for Day of Date of Exam: 08/24/25 Subjective Data Subjective Data: Continues to improve with less pain and a warm right foot with less redness. Objective Data Temperature: 98.1 F Pulse Rate: 88 Respiratory Rate: 17 Blood Pressure: 156/77 O2 Sat by Pulse Oximetry: 96 Objective Data: Right foot less swollen. Redness mostly resolved. Patient has significant desquamation of skin. Has new small ulceration on the dorsum of the foot but no surrounding purulence or fluctuation. Hemoglobin equals 9.9, white blood cell count equals 6600 Assessment Assessment: Cellulitis right foot after recent revascularization Plan Plan: Continue IV antibiotics. Will obtain lower extremity or Doppler studies tomorrow.
[2025-08-24] MEDS ORDERED: CONSULT PHARMACY - POTASSIUM & MAGNESIUM XX SCH (11:00)
[2025-08-24] MEDS: MAG-OX TAB PO SCH (11:59)
[2025-08-24] MEDS: K-DUR TAB 20 MEQ PO SCH (11:59)
[2025-08-24] MEDS ORDERED: LR 1,000 ML IV 1,000 ML IV SCH (14:00)
[2025-08-24] MEDS: LR 1,000 ML IV 1,000 ML IV SCH (14:58)
[2025-08-25 06:06] LABS: MEAN PLATELET VOLUME 10.5 fL (7.4-11.0); RED CELL DISTRIBUTION WIDTH 15.3 % (11.6-16.5)
[2025-08-25 06:21] LABS: COR CA(FOR HYPOALB) 9.7 mg/dL (8.5-10.1); COR NA(FOR HYPERGLY) 144 mmol/L (136-145); CREATININE 0.80 mg/dL (0.55-1.02); eGFR NON BLACK RACES > 60 (>60)
[2025-08-25] MEDS ORDERED: CONSULT PHARMACY - POTASSIUM & MAGNESIUM XX SCH (07:00)
[2025-08-25] MEDS: LR 1,000 ML IV 1,000 ML with MAGNESIUM SULFATE 50% INJ VIAL 1 G IV SCH (14:08)
[2025-08-25] MEDS: ALPRAZOLAM ODT PO PRN (16:24)
--- NOTE | 2025-08-25 18:33 | NOTE.SOAP ---
Soap Note Note for Day of Date of Exam: 08/25/25 Subjective Data Subjective Data: Patient had revascularization of the right leg last week now has cellulitis of the right foot which is improving IV antibiotics. Had lower extremity or Doppler studies today of the right leg Objective Data Temperature: 97.9 F Pulse Rate: 86 Respiratory Rate: 18 Blood Pressure: 159/85 O2 Sat by Pulse Oximetry: 97 Objective Data: Right foot warm. Desquamation improving redness nearly resolved. Blood cultures negative. Doppler study of the right leg shows triphasic flow through the popliteal artery monophasic flow below that. This may be patient's baseline based upon the fact that she has very poor runoff. Right leg is warm and appears to be improving with no rest pain noted. Has ulcerated wound between the 3rd and 4th toes improving. Eschar over the dorsum of the right foot measuring 1.3 cm. Assessment Assessment: Cellulitis of the right leg. Plan Plan: Continue IV antibiotics, apply Santyl to eschar over the dorsum of the right foot wound
[2025-08-25] MEDS: SANTYL EXT SCH (21:15)
[2025-08-26 05:57] LABS: MEAN PLATELET VOLUME 9.9 fL (7.4-11.0); RED CELL DISTRIBUTION WIDTH 15.4 % (11.6-16.5)
[2025-08-26 06:05] LABS: COR CA(FOR HYPOALB) 9.3 mg/dL (8.5-10.1); COR NA(FOR HYPERGLY) 145 mmol/L (136-145); CREATININE 0.85 mg/dL (0.55-1.02); eGFR NON BLACK RACES > 60 (>60)
[2025-08-26] MEDS ORDERED: CONSULT PHARMACY - POTASSIUM & MAGNESIUM XX SCH (07:00)
--- NOTE | 2025-08-26 08:07 | VAS ---
EXAMINATION: LOWER EXT ARTERIAL-UNILATERAL HISTORY: cellulitis/possible ischemia right leg; CELLULITIS RT FOOT . COMPARISON STUDY: None. TECHNIQUE: Pulsed wave Doppler and color Doppler imaging of the right lower extremity arterial system was performed. FINDINGS: PSV (cm/sec) waveform Right CUSTOM SEAMSTRESS 141 triphasic Right SFA Prox. 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 Inflow disease in the distal runoff.. THIS IS AN ELECTRONICALLY VERIFIED FINAL REPORT 08/26/2025 8:03 AM - Electronically signed by Rocael Mccray MD
[2025-08-26] MEDS: K-DUR TAB 20 MEQ PO SCH (09:40)
[2025-08-26] MEDS: MAG-OX TAB PO SCH (09:40)
[2025-08-26] MEDS: LOVENOX INJ 60 MG SYR SC SCH (13:49)
--- NOTE | 2025-08-26 14:58 | NOTE.SOAP ---
Soap Note Note for Day of Date of Exam: 08/26/25 Subjective Data Subjective Data: Right foot remains warm. Cellulitis resolved. Doppler study shows normal proximal flow with triphasic flow with very poor monophasic flow in the trifurcation vessels which is not unexpected given this patient's position. I was planning discharge home today on p.o. antibiotics but cultures of the blood have grown yeast. Patient started on Diflucan and will probably discharge t omorrow on p.o. Diflucan and p.o. antibiotics. I am still concerned about the viability of this right leg. At this time no rest pain. I hope this will heal. Objective Data Temperature: 97.9 F Pulse Rate: 76 Respiratory Rate: 16 Blood Pressure: 146/77 O2 Sat by Pulse Oximetry: 97 Objective Data: Patient had the right foot washed every day most the dry skin removed. Still with small area of eschar on the dorsum of the foot and on the plantar aspect as well. Foot is warm. Small ulceration between the 3rd and 4th toes. Assessment Assessment: Critical ischemia of the right leg status post arterial intervention with cellulitis now resolving. Positive blood cultures for yeast. Plan Plan: As above, continue IV antibiotics. Begin p.o. Diflucan. Hopefully discharge home tomorrow. Patient will probably need intervention of the left leg in the future as well.
[2025-08-26] MEDS: DIFLUCAN PO SCH (16:07)
[2025-08-27 05:52] VITALS: RESP 18
[2025-08-27 06:04] LABS: MEAN PLATELET VOLUME 9.8 fL (7.4-11.0); RED CELL DISTRIBUTION WIDTH 16.1 % (11.6-16.5)
[2025-08-27 06:14] LABS: COR CA(FOR HYPOALB) 9.8 mg/dL (8.5-10.1); COR NA(FOR HYPERGLY) 144 mmol/L (136-145); CREATININE 0.78 mg/dL (0.55-1.02); eGFR NON BLACK RACES > 60 (>60)
[2025-08-27] MEDS ORDERED: CONSULT PHARMACY - POTASSIUM & MAGNESIUM XX SCH (07:00)
[2025-08-27] MEDS: MAG-OX TAB PO ONE (09:02)
--- NOTE | 2025-08-27 13:06 | W.DIS.FURT ---
Summary of Discharge Discharge Summary of Date Date of Exam: 08/27/25 Admission Date Date of Admission: 08/22/25 Admission Diagnosis Patient Problems (Updated 08/23/25 @ 13:27 by Herberth Fairbanks) Sepsis (Acute) A41.9 Cellulitis of foot, right (Acute) L03.115 Hospital Course: This is a 50-year-old female with history of significant peripheral vascular disease, diabetes and tobacco abuse history who has significant vascular problems of both legs. Last week underwent arterial invention of the right leg with findings of Disease of the trifurcation vessels of the right leg. With occlusion of both the anterior tibial and posterior tibial arteries with the main runoff being via the diseased peroneal artery with refilling of the distal vessels at the ankle. Patient had presented back to the emergency room on the day of admission August 22 with pain and swelling and redness of the right foot. Patient has not stopped smoking. This is consistent with cellulitis. She was admitted and placed on IV antibiotics. Over the next several days the redness improved. Still with swelling. The foot remained warm. There is a small ulceration between the 3rd and 4th toes which are treated locally. There is also a 1.5 cm amount of eschar over the dorsum of the right foot which is being treated with Santyl. Patient had significant improvement of the redness and decrease in the swelling. Ssubsequent blood cultures grew out yeast and the patient has been started on p.o. Diflucan. Remains afebrile. White blood cell count normal. Patient be discharged today on her usual medications which include Xarelto and aspirin. She will be started on Diflucan 150 mg daily x 7 days. Will prescribe Santyl for the dorsum of the right foot wound to be applied daily. She will follow-up in 1 week. Patient has been encouraged not to smoke cigarettes. She will need follow-up of the right leg in hopes that it will heal and also will need intervention of the left leg arteries as well in the future. Vital Signs: Vital Signs (72 hours) 08/24/25 14:04 08/24/25 16:00 08/24/25 19:00 Temperature 98.1 F Pulse Rate Pulse Rate [Right Brachial] 82 Respiratory Rate 18 19 Blood Pressure Blood Pressure [Right Arm] 136/67 O2 Sat by Pulse Oximetry 96 Oxygen Delivery Method Room Air Room Air 08/24/25 20:00 08/24/25 21:25 08/24/25 22:25 Temperature 99.1 F Pulse Rate Pulse Rate [Right Brachial] 86 Respiratory Rate 18 18 17 Blood Pressure Blood Pressure [Right Arm] 138/75 O2 Sat by Pulse Oximetry 98 Oxygen Delivery Method Room Air 08/25/25 00:00 08/25/25 02:45 08/25/25 03:15 Temperature 98.2 F Pulse Rate Pulse Rate [Right Brachial] 78 Respiratory Rate 18 18 18 Blood Pressure Blood Pressure [Right Arm] 114/64 O2 Sat by Pulse Oximetry 95 Oxygen Delivery Method Room Air 08/25/25 03:46 08/25/25 06:07 08/25/25 07:00 Temperature 97.8 F Pulse Rate Pulse Rate [Right Brachial] 78 Respiratory Rate 18 18 Blood Pressure Blood Pressure [Right Arm] 136/81 O2 Sat by Pulse Oximetry 96 Oxygen Delivery Method Room Air Room Air 08/25/25 08:00 08/25/25 12:00 08/25/25 12:24 Temperature 97.9 F 97.9 F Pulse Rate Pulse Rate [Right Brachial] 81 86 Respiratory Rate 16 16 16 Blood Pressure Blood Pressure [Right Arm] 138/67 156/85 O2 Sat by Pulse Oximetry 96 97 Oxygen Delivery Method Room Air Room Air 08/25/25 13:24 08/25/25 16:00 08/25/25 16:25 Temperature 98.1 F Pulse Rate Pulse Rate [Right Brachial] 82 Respiratory Rate 18 17 18 Blood Pressure Blood Pressure [Right Arm] 159/85 O2 Sat by Pulse Oximetry 99 Oxygen Delivery Method Room Air 08/25/25 16:55 08/25/25 18:31 08/25/25 19:00 Temperature 97.9 F Pulse Rate 86 Pulse Rate [Right Brachial] Respiratory Rate 20 18 Blood Pressure 159/85 Blood Pressure [Right Arm] O2 Sat by Pulse Oximetry 97 Oxygen Delivery Method Room Air 08/25/25 20:00 08/25/25 23:43 08/25/25 23:45 Temperature 97.6 F 98.4 F Pulse Rate Pulse Rate [Right Brachial] 82 83 Respiratory Rate 19 22 20 Blood Pressure Blood Pressure [Right Arm] 139/77 143/69 O2 Sat by Pulse Oximetry 98 96 Oxygen Delivery Method Room Air Room Air 08/26/25 00:13 08/26/25 02:16 08/26/25 03:16 Temperature Pulse Rate Pulse Rate [Right Brachial] Respiratory Rate 19 20 18 Blood Pressure Blood Pressure [Right Arm] O2 Sat by Pulse Oximetry Oxygen Delivery Method 08/26/25 03:33 08/26/25 07:00 08/26/25 08:00 Temperature 98.4 F 98.3 F Pulse Rate Pulse Rate [Right Brachial] 83 78 Respiratory Rate 20 17 Blood Pressure Blood Pressure [Right Arm] 151/70 116/62 O2 Sat by Pulse Oximetry 93 L 96 Oxygen Delivery Method Room Air Room Air Room Air 08/26/25 12:00 08/26/25 13:48 08/26/25 14:48 Temperature 97.9 F Pulse Rate Pulse Rate [Right Brachial] 76 Respiratory Rate 16 17 18 Blood Pressure Blood Pressure [Right Arm] 146/77 O2 Sat by Pulse Oximetry 97 Oxygen Delivery Method Room Air 08/26/25 14:58 08/26/25 16:00 08/26/25 19:51 Temperature 97.9 F 98.3 F Pulse Rate 76 Pulse Rate [Right Brachial] 81 Respiratory Rate 16 18 20 Blood Pressure 146/77 Blood Pressure [Right Arm] 122/59 O2 Sat by Pulse Oximetry 97 98 Oxygen Delivery Method Room Air 08/26/25 20:00 08/26/25 20:00 08/26/25 20:21 Temperature 97.9 F Pulse Rate Pulse Rate [Right Brachial] 83 Respiratory Rate 17 18 Blood Pressure Blood Pressure [Right Arm] 169/73 O2 Sat by Pulse Oximetry 99 Oxygen Delivery Method Room Air Room Air 08/27/25 00:00 08/27/25 04:00 08/27/25 04:30 Temperature 98.4 F 98.4 F Pulse Rate Pulse Rate [Right Brachial] 79 76 Respiratory Rate 20 16 20 Blood Pressure Blood Pressure [Right Arm] 134/77 156/77 O2 Sat by Pulse Oximetry 98 96 Oxygen Delivery Method Room Air Room Air 08/27/25 05:00 08/27/25 11:29 Temperature Pulse Rate Pulse Rate [Right Brachial] Respiratory Rate 18 18 Blood Pressure Blood Pressure [Right Arm] O2 Sat by Pulse Oximetry Oxygen Delivery Method Labs: Laboratory Last Values WBC 4.7 X10^3/uL (3.6-10.0) 08/27/25 05:33 RBC 3.54 X10^6/uL (3.5-5.4) 08/27/25 05:33 Hgb 10.5 g/dL (12.0-16.0) L 08/27/25 05:33 Hct 32.3 % (36.0-47.0) L 08/27/25 05:33 MCV 91.2 fL (80.0-100.0) 08/27/25 05:33 MCH 29.5 pg (27.0-34.0) 08/27/25 05:33 MCHC 32.4 g/dL (33.0-35.0) L 08/27/25 05:33 RDW 16.1 % (11.6-16.5) 08/27/25 05:33 Plt Count 285 X10^3/uL (150.0-450.0) 08/27/25 05:33 MPV 9.8 fL (7.4-11.0) 08/27/25 05:33 Neut % (Auto) 34.4 % (42.0-75.0) L 08/27/25 05:33 Lymph % (Auto) 51.9 % (21.0-51.0) H 08/27/25 05:33 [place] % (Auto) 7.3 % (0.0-13.0) 08/27/25 05:33 Eos % (Auto) 5.7 % (0.9-2.9) H 08/27/25 05:33 Baso % (Auto) 0.7 % (0.2-1.0) 08/27/25 05:33 Neut # (Auto) 1.6 x10^3/uL (2.2-4.8) L 08/27/25 05:33 Lymph # (Auto) 2.4 X10^3/uL (1.3-2.9) 08/27/25 05:33 [place] # (Auto) 0.3 x10^3/uL (0.3-0.8) 08/27/25 05:33 Eos # (Auto) 0.3 x10^3/uL (0.0-0.2) H 08/27/25 05:33 Baso # (Auto) 0.0 X10^3/uL (0.0-0.1) 08/27/25 05:33 Absolute Nucleated RBC 0.1 /100WBC 08/27/25 05:33 Sodium 142 mmol/L (136-145) 08/27/25 05:33 Corrected Sodium 144 mmol/L (136-145) 08/27/25 05:33 Potassium 3.9 mmol/L (3.5-5.1) 08/27/25 05:33 Chloride 103 mmol/L (98-107) 08/27/25 05:33 Carbon Dioxide 30.9 mmol/L (21-32) 08/27/25 05:33 BUN 12 mg/dL (7-18) 08/27/25 05:33 Creatinine 0.78 mg/dL (0.55-1.02) 08/27/25 05:33 Est GFR (MDRD) Af Amer > 60 (>60) 08/27/25 05:33 Est GFR (MDRD) Non-Af > 60 (>60) 08/27/25 05:33 Glucose 202 mg/dL (65-99) H 08/27/25 05:33 POC Glucose (mg/dL) 186 mg/dL (65-99) H 08/27/25 05:38 Lactic Acid 1.5 mmol/L (0.4-2.0) 08/22/25 17:38 Calcium 8.8 mg/dL (8.5-10.1) 08/27/25 05:33 Corrected Calcium 9.8 mg/dL (8.5-10.1) 08/27/25 05:33 Magnesium 1.9 mg/dL (2.0-2.9) L 08/27/25 05:33 Total Bilirubin 0.40 mg/dL (0.2-1.0) 08/27/25 05:33 AST 37 Units/L (15-37) 08/27/25 05:33 ALT 19 Units/L (12-78) 08/27/25 05:33 Alkaline Phosphatase 118 Units/L (46-116) H 08/27/25 05:33 Total Protein 7.5 g/dL (6.4-8.2) 08/27/25 05:33 Albumin 2.8 g/dL (3.4-5.0) L 08/27/25 05:33 Globulin 4.7 g/dL (2.5-4.5) H 08/27/25 05:33 Albumin/Globulin Ratio 0.6 Ratio (1.1-2.1) L 08/27/25 05:33 Reason For Visit: CELLULITIS RIGHT FOOT Discharge Date Discharge Date: 08/27/25 Discharge Diagnosis All Active Problems (Updated 08/23/25 @ 13:27 by Herberth Fairbanks) Coronary artery disease status post coronary stent insertion (Acute) Tobacco abuse disorder (Acute) Sepsis (Acute) Cellulitis of foot, right (Acute) Atherosclerosis of [place] arteries of extremities with rest pain, left leg (Acute) Atherosclerosis of [place] arteries of extremities with rest pain, right leg (Acute) Hypomagnesemia (Acute) Tachycardia (Acute) HTN (hypertension) (Chronic) Uncontrolled insulin-treated type 2 diabetes mellitus (Chronic) Acute dehydration (Acute) Diabetic ulcer of right foot (Chronic) Diabetic foot ulcer (Acute) Pneumonia (Acute) Sinus tachycardia (Acute) Uncontrolled diabetes mellitus (Chronic) Hypokalemia (Acute) Diabetic ulcer of foot associated with diabetes mellitus due to underlying condition, limited to breakdown of skin (Acute) Sepsis (Acute) Callous ulcer (Acute) Acute sinusitis (Acute) Hypotension (Acute) Fracture of base of fifth metatarsal bone of right foot (Acute) Sprain of ankle, right (Acute) Oral candidiasis (Acute) Chest pain (Acute) Claudication of both lower extremities (Acute) Abdominal pain (Acute) Tooth infection (Acute) HLD (hyperlipidemia) (Acute) GERD (gastroesophageal reflux disease) (Chronic) Encounter for tobacco use cessation counseling (Acute) Coronary artery disease (Chronic) Hospital discharge follow-up (Acute) Non-ST elevated myocardial infarction (non-STEMI) (Acute) Vaginal claudia (Acute) Peripheral vascular disease (Chronic) HTN (hypertension) (Chronic) Neuropathy (Acute) Chronic constipation (Acute) Dysphagia (Acute) Chronic cervical pain (Chronic) Left lumbar radiculopathy (Acute) Plan of Treatment: Continue with present treatment and follow up plan. Pt is to keep follow up appointment as instructed and take medications as ordered. Discharge Medications Discharge Medications: clindamycin Allergy (Severe, Verified 08/22/25 16:00) ANAPHALEXIS REACTION Penicillins Allergy (Unknown, Verified 08/22/25 16:00) CONTINUE taking the following medications duloxetine 60 mg capsule,delayed release 60 mg PO QDAY 08/22/25 [History] hydroxyzine HCl 25 mg tablet 25 mg PO QDAY 11/07/25 [History] metoprolol succinate 50 mg tablet,extended release 24 hr 50 mg PO QDAY 08/22/25 [History] Aspirin 81 g daily Xarelto 2.5 mg twice daily Santyl applied to the right foot wound daily Diflucan 150 mg daily x 7-day Discharge Disposition Assessment: see hospital course Discharge Plan Discharge Plan Hospital Course: This is a 50-year-old female with history of significant peripheral vascular disease, diabetes and tobacco abuse history who has significant vascular problems of both legs. Last week underwent arterial invention of the right leg with findings of Disease of the trifurcation vessels of the right leg. With occlusion of both the anterior tibial and posterior tibial arteries with the main runoff being via the diseased peroneal artery with refilling of the distal vessels at the ankle. Patient had presented back to the emergency room on the day of admission August 22 with pain and swelling and redness of the right foot. Patient has not stopped smoking. This is consistent with cellulitis. She was admitted and placed on IV antibiotics. Over the next several days the redness improved. Still with swelling. The foot remained warm. There is a small ulceration between the 3rd and 4th toes which are treated locally. There is also a 1.5 cm amount of eschar over the dorsum of the right foot which is being treated with Santyl. Patient had significant improvement of the redness and decrease in the swelling. Ssubsequent blood cultures grew out yeast and the patient has been started on p.o. Diflucan. Remains afebrile. White blood cell count normal. Patient be discharged today on her usual medications which include Xarelto and aspirin. She will be started on Diflucan 150 mg daily x 7 days. Will prescribe Santyl for the dorsum of the right foot wound to be applied daily. She will follow-up in 1 week. Patient has been encouraged not to smoke cigarettes. She will need follow-up of the right leg in hopes that it will heal and also will need intervention of the left leg arteries as well in the future. Patient Disposition: 01 HOME, SELF-CARE Condition: Stable Health Concerns: Post Hospitalization: new medications and changes needed to prevent readmission or further decline. Pt educated and given instructions on all concerns. Care Plan Goals: Problem: Pain/Alteration in Comfort Goal: Improve/ Resolve Pain; Achieve Pain Tolerance Instructions: Take pain medications as prescribed. Contact your primary care provider if your pain is unrelieved or worsens. Follow up with primary care provider as directed. Plan of Treatment: Continue with present treatment and follow up plan. Pt is to keep follow up appointment as instructed and take medications as ordered. Assessment: see hospital course Prescriptions: New clindamycin HCl [Cleocin HCl] 150 mg capsule 150 mg PO TID Qty: 30 0RF fluconazole [Diflucan] 40 mg/mL suspension for reconstitution 100 mg PO QDAY 7 Days Qty: 17.5 0RF Santyl 250 unit/gram ointment 1 applic topical QDAY Qty: 30 0RF rivaroxaban [Xarelto] 2.5 mg tablet 2.5 mg PO BID Qty: 180 0RF oxycodone-acetaminophen [Percocet] 5-325 mg tablet 1 tab PO Q6H MDD 4 PRNQty: 30 0RF Continued alprazolam 1 mg tablet 1 mg PO BID MDD 2 PRN (Reason: anxiety) 30 Days Qty: 60 0RF gabapentin 800 mg tablet 800 mg PO TID 30 Days Qty: 90 1RF clopidogrel 75 mg tablet 75 mg PO QDAY Qty: 90 0RF atorvastatin 80 mg tablet 80 mg PO QPM Qty: 90 0RF insulin glargine [Lantus Solostar U-100 Insulin] 100 unit/mL (3 mL) insulin pen 40 unit subcut QAM 90 Days Qty: 36 1RF Rx Instructions: take 40 units daily metoprolol succinate 50 mg tablet extended release 24 hr 50 mg PO QDAY hydroxyzine HCl 25 mg tablet 25 mg PO QDAY duloxetine 60 mg capsule,delayed release(DR/EC) 60 mg PO QDAY pantoprazole 40 mg tablet,delayed release (DR/EC) 40 mg PO QDAY 30 Days Qty: 30 0RF Orders to Discharge Patient Discharge Orders: Discharge (Routine); Ordered 08/27/25 Ordered By: Herberth Fairbanks Follow ups/Referrals Follow ups/Referrals: Herberth Fairbanks [Primary Care Provider, Unknown] - 09/03/25 2:30 pm Instructions Instructions: Managing the Challenge of Quitting Smoking, Cellulitis, Adult, C ellulitis, Adult, [id number] Stand Alone Forms: Excuse From Work or School, Find Help Web Site, Post Hospital Follow Up Care Print Language: TAIWANESE
[2025-08-27 15:28] VITALS: BP 147/73; PULSE 71; TEMP 98.3; O2SAT 98
== END 2025-08-27 14:00 | disposition home or self-care (01) ==
LOC: ER 15:13 → MED/SURG 15:13
PROVIDERS: ADMIT Surgery; ATTEND Surgery
DX: E11.621 Type 2 diabetes mellitus with foot ulcer; I25.10 Atherosclerotic heart disease of native coronary artery without angina pectoris; E87.6 Hypokalemia; I10 Essential (primary) hypertension; R94.4 Abnormal results of kidney function studies; Z98.890 Other specified postprocedural states; E78.5 Hyperlipidemia, unspecified; E83.51 Hypocalcemia; L03.115 Cellulitis of right lower limb; D64.89 Other specified anemias; R13.11 Dysphagia, oral phase; Z72.0 Tobacco use; R79.89 Other specified abnormal findings of blood chemistry; R74.8 Abnormal levels of other serum enzymes; Z95.5 Presence of coronary angioplasty implant and graft; B37.89 Other sites of candidiasis; E11.65 Type 2 diabetes mellitus with hyperglycemia; Z79.4 Long term (current) use of insulin; E83.42 Hypomagnesemia; I70.223 Atherosclerosis of native arteries of extremities with rest pain, bilateral legs; K21.9 Gastro-esophageal reflux disease without esophagitis